=== PATIENT | male | born 1940 | race Caucasian/White ===

== ENCOUNTER 2019-04-07 15:18 | Outpatient (CLI) | payer MEDICARE, SELFPAY ==
--- NOTE | ~2019-04-07 | CT_ITS ---
EXAMINATION: CT brain wo con EXAM DATE: 04/07/2019 15:50 INDICATION: Repeated falls. TECHNIQUE: Spiral CT of the head was performed without contrast. Axial, coronal and sagittal images were reviewed. The dose-length product (DLP) for this examination was 681.00 mGy-cm. The exposure w as tailored according to patient size, and iterative reconstruction (ASIR) was used as additional dos e reduction technique. There is no prior study for comparison. FINDINGS: There is no acute intraparenchymal hemorrhage. No evidence of intraparenchymal brain mass lesion. No evidence of acute infarction. Please note that initial head CT has limited sensitivity f or small or acute infarctions. There is mild periventricular and subcortical hypodensity, nonspecific but probably related to small vessel ischemic disease. There is moderate prominence of the sulci a nd ventricles related to cerebral atrophy. There is intracranial carotid arteriosclerosis. There a re no extra-axial collections. There is no mass effect or midline shift. Patient has had bilateral ocular lens surgery. Soft tissue is unremarkable. The visualized sinuses and mastoid air cells are well aerated. IMPRESSION: 1. No acute intracranial findings. 2. Chronic age related findings. Reviewed, dictated and finalized at location A. [employer]
== END 2019-04-07 15:19 | disposition home or self-care (01) ==
PROVIDERS: PCP Family Medicine; Visit Provider Family Medicine
DX: R26.89 Other abnormalities of gait and mobility (principal); R29.6 Repeated falls
CPT/HCPCS: 70450

== ENCOUNTER 2019-10-11 12:25 | Inpatient (IN) | payer MEDICARE, SELFPAY ==
[2019-10-11] VITALS (13 sets, daily range): BP systolic 69–128; BP diastolic 38–53; PULSE 58–69; RESP 16–18; TEMP 36.3–37.2; O2SAT 99–100; BMI 26.8
--- NOTE | ~2019-10-11 | US_ITS ---
EXAMINATION: US venous doppler [facility] DATE: 10/12/2019 10:16 INDICATION: Lower limb edema. TECHNIQUE: Grayscale ultrasound images without and with compression and Doppler ultrasound images of the bilateral lower extremity veins were obtained. COMPARISON: Ultrasound 09/30/2015 FINDINGS: The visualized portions of right common femoral vein, profunda (deep) femoral vein, femoral vein, pop liteal vein, peroneal veins, posterior tibial veins, lesser saphenous vein, and greater saphenous vei n outflow are patent. The visualized portions of left common femoral vein, profunda femoral vein, femoral vein, popliteal v ein, peroneal veins, posterior tibial veins, lesser saphenous vein, and greater saphenous vein outflo w are patent. IMPRESSION: 1. No deep venous thrombosis. Reviewed, dictated and finalized at location B.
--- NOTE | ~2019-10-11 | CT_ITS ---
EXAMINATION: CT abdomen pelvis wo con DATE: 10/11/2019 13:29 INDICATION: Abdominal pain. TECHNIQUE: Computed tomography (CT) of the abdomen and pelvis was performed without intravenous contr ast. Automated exposure control and iterative reconstruction technique were employed. The dose-length product was 602.60 mGy-cm. COMPARISON: 06/30/2018 FINDINGS: Atelectasis the left lung base with mild elevation of the left hemidiaphragm. Unchanged atelectasis/s carring at the posterior medial right lower lobe along side several prominent thoracic endplate osteo phytes. Heart size is normal. Median sternotomy and aortic valve repair. There is also dense atherosc lerotic calcific lesion versus stenting along the right coronary artery. No pericardial or pleural ef fusion. A few calcified gallstones at the neck of the normal-appearing gallbladder. No evident wall thickenin g or pericholecystic inflammatory change to suggest acute cholecystitis. Liver, pancreas and bilatera l adrenal glands are normal. A few small calcifications in the spleen consistent with old granulomato us disease. Mild bilateral renal atrophy. No urolithiasis or hydronephrosis. There is extensive colon ic diverticulosis with a sigmoid predominance. There is no adjacent inflammatory change to suggest d iverticulitis no bowel obstruction. Appendix is normal. There is an irregular intraluminal filling de fect at the right posterior aspect of the bladder. This could be related to clot or neoplasm either a rising from the bladder wall or from the adjacent enlarged prostate. Small fat-containing left inguin al hernia. No free intraperitoneal gas or fluid. Unchanged haziness to the fat of the small bowel mes entery with a few prominent but still normal-sized mesenteric lymph nodes. There is also a round 8 mm lymph node in the fat along the right anterior margin of the bladder which is within normal limits i n size although atypical at this location but which has not changed since the prior study. No patholo gically enlarged abdominal or pelvic lymphadenopathy. There is calcified atherosclerosis of the aorta and many of the other arteries. Lumbar dextroscoliosis with moderate spondylosis. 5 mm anterolisthes is L4 on L5 with associated severe bilateral facet osteoarthritis. IMPRESSION: 1. Irregular filling defect in the bladder which could represent clot or malignancy either arising fr om the bladder wall or from the enlarged prostate. Correlate with urinalysis and consider further kwabena luation with either ultrasound or cystoscopy. 2. Cholelithiasis. 3. Diverticulosis. Reviewed, dictated and finalized at location A. IMPRESSION: 1. Irregular filling defect in the bladder which could represent clot or malign jluis either arising from the bladder wall or from the enlarged prostate. Correl ate with urinalysis and consider further evaluation with either ultrasound or c ystoscopy. 2. Cholelithiasis. 3. Diverticulosis.
[2019-10-11 13:01] LABS: Basophils Percent Auto 0.2 % (0.2-1.2); Eosinophils Absolute Auto 0.4 K/mm3 (0-0.3); Eosinophils Percent Auto 3.8 % (0-4.4); Hematocrit 43.7 % (42.0-52.0); Hemoglobin 14.5 g/dL (14.0-18.0); Immature Granulocyte Absolute 0.05 K/mm3 (0.00-0.031); Immature Granulocyte Percent A 0.5 % (0-0.5); Lymphocytes Absolute Auto 1.97 K/mm3 (0.9-3.2); Lymphocytes Percent Auto 18.6 % (18.3-44.2); Mean Corpuscular HGB Conc 33.2 g/dl (32-36); Mean Corpuscular Hemoglobin 31.9 pg (26-34); Mean Platelet Volume 11.9 fl (7.4-10.4); Monocytes Absolute Auto 1.1 K/mm3 (0.1-0.6); Monocytes Percent Auto 10.2 % (2.6-8.5); Neutrophils Absolute Auto 7.1 K/mm3 (1.3-6.7); Neutrophils Percent Auto 66.7 % (45.5-73.1); Platelet Count Result 114 k/mm3 (150-375); Red Blood Count 4.55 M/mm3 (4.6-6.20); Red Cell Distribution Width 13.8 % (11.5-14.5); White Blood Count 10.6 K/mm3 (4.5-10.0)
[2019-10-11 13:11] LABS: Alanine Aminotransferase 22 U/L (4-50); Albumin Level 3.2 g/dL (3.5-5.1); Alkaline Phosphatase 66 U/L (38-126); Anion Gap 7 mmol/L (8-16); Aspartate Amino Transferase 28 U/L (17-59); Bilirubin,Total 0.9 mg/dL (0.2-1.3); Blood Urea Nitrogen 60 mg/dL (9-20); Calcium 9.2 mg/dL (8.4-10.2); Carbon Dioxide 21 mmol/L (22-30); Chloride 109 mmol/L (98-107); Estimated CRCL calculation 27 ml/min; Estimated Glomerular Filt Rate 30; Glucose 154 mg/dL (75-110); Lipase 150 U/L (23-300); Potassium 4.8 mmol/L (3.4-5.0); Sodium 137 mmol/L (137-145)
--- NOTE | 2019-10-11 13:12 | ED.GENADULT ---
HPI - General Adult General Chief complaint: Nausea/Vomiting/Diarrhea Stated complaint: n/v/d Time Seen by Provider: 10/11/19 12:50 History of Present Illness HPI narrative: Patient is a 79 y/o male complaining of vomiting, diarrhea intermittently for last 6 days. There is no alleviating or exacerbating factor. He states that he also has some dark stool in diarrhea and abdominal pain. He has 1-2 episodes of diarrhea per day. Related Data Home Medications Medication Instructions Recorded Confirmed aspirin 81 mg tablet,delayed 81 mg PO DAILY 03/24/19 10/11/19 release atorvastatin 80 mg tablet 40 mg PO BID 03/24/19 10/11/19 ferrous sulfate 325 mg (65 mg 325 mg PO BID 03/24/19 10/11/19 iron) tablet furosemide 20 mg tablet 40 mg PO BID 03/24/19 10/11/19 latanoprost 0.005 % eye drops 1 drop EACH EYE DAILY 03/24/19 10/11/19 nitroglycerin 0.4 mg sublingual 0.4 mg SUBLINGUAL Q5M PRN 03/24/19 10/11/19 tablet tamsulosin 0.4 mg capsule 0.4 mg PO DAILY 03/24/19 10/11/19 timolol 0.5 % eye drops 1 drop EACH EYE Q12H 04/13/19 10/11/19 lisinopril 5 mg PO DAILY 10/11/19 10/11/19 warfarin 3 mg PO DAILY 10/11/19 10/11/19 Allergies Allergy/AdvReac Type Severity Reaction Status Date / Time ciprofloxacin Allergy Unknown loss of Verified 10/11/19 15:47 appetite prednisone Allergy Unknown Palpitation Verified 10/11/19 15:47 s sulfamethizole Allergy Unknown loss of Verified 10/11/19 15:47 appetite trimethoprim Allergy Unknown loss of Verified 10/11/19 15:47 appetite Review of Systems Constitutional: Constitutional: Reports as per HPI Eyes: Eyes: Denies blurry vision ENT: Denies headache(s) and Denies neck pain Cardiovascular: Cardiovascular: Denies chest pain and Denies dyspnea Respiratory: Respiratory: Denies cough and Denies dyspnea Gastrointestinal: Gastrointestinal: Reports abdominal pain, Reports diarrhea, Reports nausea and Reports vomiting Genitourinary: Genitourinary: Denies hematuria and Denies dysuria Musculoskeletal: Musculoskeletal: Denies back pain and Denies neck pain Neurologic: Denies headache(s) and Denies weakness [facility] Surgical History Surgical History (Updated 03/25/19 @ 10:31 by Pavel Black MD) History of CEA (carotid endarterectomy) right History of total knee arthroplasty S/P AVR (aortic valve replacement) S/P CABG (coronary artery bypass graft) S/P coronary artery stent placement S/P TURP Social History Social History (Updated 08/17/19 @ 11:01 by Bethanie Arevalo) Smoking packs per day: 1 Smoking cigarettes per day: 20.0 Years smoked: 36 Smoking pack-years: 36.00 Smoking status: Former smoker Tobacco type: cigarettes Second hand tobacco smoke exposure: No Smoking end date: 03/04/91 Alcohol intake: never Substance use: never Substance use type: does not use Gender identity (if verbalized by the patient): Male Spiritual care concerns: No Exam Const: General: no acute distress and well developed Orientation/consciousness: oriented to person, oriented to place, oriented to time and patient oriented x3 HENMT: Head: normocephalic Ears: external ears normal General nose exam: Normal external nose present Eyes: General: appearance normal, both eyes and all related structures Conjunctivae: conjunctivae normal Neck: Neck: normal visual inspection and full ROM Chest: Chest palpation & inspection: normal inspection of the chest and no tenderness Resp: Effort & Inspection: normal respiratory effort Auscultation: clear to auscultation bilaterally Cardio: Rate: regular rate Rhythm: regular rhythm GI: GI Palp: No abdominal tenderness and Yes Soft to palpation Skin: General skin exam: normal color and turgor normal Neuro: General: oriented to person, oriented to place, oriented to time and patient oriented x3 Cognition (Neuro): normal cognition Extrem: General: normal to inspection, full ROM and no pedal edema Psych: Appearanc
[2019-10-11] MEDS: SODIUM CHLORIDE 0.9% IV 1,000 ML 999 ML IV CONT ×2 (13:19→14:09)
[2019-10-11 14:36] LABS: Add Urine Microscopic? YES; Appearance Urine Clear (Clear); Bilirubin Urine Negative (Negative); Blood Urine Negative (Negative); Color Urine Yellow (Yellow); Glucose Urine UA Negative (Negative); Hyaline Casts Urine 20-29 /lpf; Ketones Urine Negative (Negative); Leukocyte Esterase Ur Negative LEU/UL (Negative); Mucus Urine Rare /lpf; Nitrate Urine Negative (Negative); Protein Urine 1+ mg/dL (Negative); RBC Urine 0-2 /hpf (0-2); Specific Grav Ur 1.017 (1.001-1.035); Squamous Epithelial Cell Urine Occasional /hpf (Few); Urobilinogen Urine Negative mg/dL (<2.0); WBC Urine 0-3 /hpf
--- NOTE | 2019-10-11 16:45 | PM.IMHP ---
H&P: HPI History of Present Illness Date/Time: 10/11/19 16:45 Chief complaint: Dark stools. Narrative: Pablo Mixon is an 79-year-old male with history of coronary artery disease status post CABG, aortic stenosis status post porcine aortic valve replacement, hypertension, type 2 diabetes mellitis, paroxysmal atrial fibrillation on long-term anticoagulation, and history of DVT on warfarin who presented to the emergency department earlier today from home for evaluation of dark stools. He has not felt well off and on since last Saturday with vague symptoms to include intermittent loose stools and a couple of episodes of vomiting. There have been days this week that he felt ok, but he does report increasing fatigue. He came to the hospital today as he has passed several dark, loose stools in the last couple of days. In the emergency department, he was quite orthostatic (95/46 --> 78/42 --> 69/38) but tells me that he was not feeling lightheaded or dizzy with those low readings. Additionally, he was noted to be in acute renal failure and with further questioning he mentions a change in his furosemide dose recently due to increasing lower extremity edema. Previously he had been on 20 mg twice daily, increased to three times daily, and more recently he was started on 20 mg three times day alternating with 20 mg four times a day. The swelling may have gone down a bit. He has not noticed a change in urine output or change in the color of his urine. It does not sound as though he has been eating or drinking as much this week as normal either although he denies epigastric discomfort, indigestion, abdominal pain, nausea (despite reporting an episode or 2 of vomiting this week), belching, and bloating. he has been on iron for quite some time, and has never noticed dark stools like this before. He has not taken Pepto-Bismol. He has no history of GERD. He denies significant caffeine and alcohol use. He has not had any change in stressors. He denies dysphagia, but apparently had a history of such several years ago. He also denies chest pain, pleuritic pain, shortness of breath, orthopnea, and PND. Review of Systems Review of Systems: Narrative: Twelve systems were reviewed with pertinent positives and negatives as per HPI. No headache. He denies lightheadedness and dizziness. No falls. No recent cold or flu symptoms. He denies recent travel and sick contacts. No dysuria, hematuria, urgency, or urinary hesitancy. The symptoms got better after a TURP couple of years ago. He recently saw Dr. Hollis and had what sounds like a bladder ultrasound, which may explain the finding on today's CT. Patient is do not have any information with regards to why that was done or what was found, however. His weight has remained stable. Despite reports of fatigue this past week, he admits that he has just not felt the same since his bypass and aortic valve replacement in 2018. Except as documented, all other systems were reviewed and are negative. [facility] Past Medical History Medical History (Updated 10/11/19 @ 19:26 by Daisy Ralph PA-C) Aortic stenosis Status post porcine valve replacement in 2018. Benign prostatic hyperplasia Carotid artery disease Status post right carotid endarterectomy in 2005. Coronary artery disease With history of stents and bypass. 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 He refused further testing, but there is documentation that he most likely has sleep apnea. Osteoarthritis Paroxysmal atrial fibrillation Stage 3 chronic kidney disease Baseline creatinine runs between 1.4 and 1.5. Type 2 diabetes mellitus Vitamin D deficiency Surgical History Surgical History (Updated 10/11/19 @ 19:09 by Daisy Santos
--- NOTE | 2019-10-11 17:19 | ADMGEN ---
This patient, Pablo Mixon, was admitted to 3 [facility] Room 324-01. Patient/family oriented to hospital policies and general routines including ID bracelet, bed and alarms, visiting hours, pain management, procedures, bathroom and other care routines, personal items, smoking policy, room service/diet, and visiting hours. Valuables list has been completed. Information on how to activate the Rapid Response Team has been discussed. Patient/Family are encouraged to report perceived risks to care and to ask questions if they do not understand what they are told or what they should do.
[2019-10-11 17:46] LABS: Hematocrit 40.2 % (42.0-52.0); Hemoglobin 13.2 g/dL (14.0-18.0)
[2019-10-11 17:56] LABS: Creatine Kinase 78 U/L (55-170)
[2019-10-11 17:58] LABS: INR 3.8
[2019-10-11 17:59] LABS: Partial Thromboplastin Time 53.7 SECONDS (22.3-36.8)
[2019-10-11] MEDS: SODIUM CHLORIDE 0.9% IV 1,000 ML 125 ML IV CONT (18:03)
[2019-10-11] MEDS: ATORVASTATIN 40 MG TABLET PO (20:42)
[2019-10-11] MEDS: SODIUM CHLORIDE 0.9% IV 1,000 ML 90 ML IV CONT (20:42)
[2019-10-11] MEDS: FERROUS SULFATE 324 MG TABLET PO (20:42)
[2019-10-11] MEDS: TIMOLOL MALEATE 0.5% OP SOLN 5 ML BOTTLE 1 DROP EACH EYE (20:42)
[2019-10-11 22:11] LABS: Glucose Point of Care 119 (65-105)
[2019-10-12] VITALS (8 sets, daily range): BP systolic 116–145; BP diastolic 39–63; PULSE 53–62; RESP 16–20; TEMP 36.6–36.9; O2SAT 96–99
[2019-10-12 01:02] LABS: Hematocrit 34.7 % (42.0-52.0); Hemoglobin 11.4 g/dL (14.0-18.0)
[2019-10-12 06:45] LABS: Hematocrit 34.5 % (42.0-52.0); Hemoglobin 11.3 g/dL (14.0-18.0); Mean Corpuscular HGB Conc 32.8 g/dl (32-36); Mean Corpuscular Hemoglobin 31.7 pg (26-34); Mean Corpuscular Volume 96.6 fl (80-100); Mean Platelet Volume 11.9 fl (7.4-10.4); Platelet Count Result 96 k/mm3 (150-375); Red Blood Count 3.57 M/mm3 (4.6-6.20); Red Cell Distribution Width 13.8 % (11.5-14.5); White Blood Count 8.5 K/mm3 (4.5-10.0)
[2019-10-12 06:56] LABS: INR 4.5; Prothrombin Time 41.8 Seconds (11.1-14.7)
[2019-10-12 06:57] LABS: Anion Gap 3 mmol/L (8-16); Blood Urea Nitrogen 52 mg/dL (9-20); Calcium 8.5 mg/dL (8.4-10.2); Carbon Dioxide 21 mmol/L (22-30); Chloride 115 mmol/L (98-107); Estimated CRCL calculation 35 ml/min; Estimated Glomerular Filt Rate 42; Glucose 96 mg/dL (75-110); Phosphorus 3.3 mg/dL (2.5-4.5); Potassium 4.1 mmol/L (3.4-5.0); Sodium 139 mmol/L (137-145)
[2019-10-12] MEDS: FERROUS SULFATE 324 MG TABLET PO ×2 (10:47→18:53)
[2019-10-12] MEDS: TAMSULOSIN HCL 0.4 MG CAPSULE PO (10:47)
[2019-10-12] MEDS: ATORVASTATIN 40 MG TABLET PO ×2 (10:48→20:50)
[2019-10-12] MEDS: LATANOPROST 0.005% OP SOLN 2.5 ML BTL 1 DROP EACH EYE (10:48)
[2019-10-12] MEDS: TIMOLOL MALEATE 0.5% OP SOLN 5 ML BOTTLE 1 DROP EACH EYE ×2 (10:49→20:51)
--- NOTE | 2019-10-12 11:02 | WPDGICN ---
Assessment and Plan Assessment and plan (1) Dark stools: Code(s): R19.5 - Other fecal abnormalities Status: Acute Assessment and Plan: Dark stools are of uncertain significance. Given his history of anticoagulation stool Hemoccult will be obtained. Patient's hemoglobin is stable. If stool Hemoccult is positive elective colonoscopy can be arranged. (2) Current use of [facility] anticoagulation: Code(s): Z79.01 - shelter (current) use of anticoagulants Status: Acute (3) Stage 3 chronic kidney disease: Code(s): N18.3 - Chronic kidney disease, stage 3 (moderate) Status: Acute (4) Type 2 diabetes mellitus: Code(s): E11.9 - Type 2 diabetes mellitus without complications Status: Acute (5) History of total knee arthroplasty: Code(s): Z96.659 - Presence of unspecified artificial knee joint Status: Acute (6) S/P AVR (aortic valve replacement): Code(s): Z95.2 - Presence of prosthetic heart valve Status: Acute (7) S/P CABG (coronary artery bypass graft): Code(s): Z95.1 - Presence of aortocoronary bypass graft Status: Acute (8) Cholelithiasis: Code(s): K80.20 - Calculus of gallbladder without cholecystitis without obstruction Status: Acute Assessment and Plan: Gallstones noted on CT scan likely asymptomatic. (9) Family history of colon cancer in father: Code(s): Z80.0 - Family history of malignant neoplasm of digestive organs Status: Acute Assessment and Plan: Because of family history of colon cancer elective screening colonoscopy at 5 year intervals can be considered as an outpatient. GI Consult Note Consult date/time: 10/12/19 11:02 HPI: Pablo Mixon is a 79 year old male Seen in evaluation at the request of the hospitalist service. Patient presented the emergency room complaining of dark stools and was admitted to the hospital. No overt bleeding has been identified. Patient denies having had GI bleeding in the past. His past medical history is significant for atherosclerotic heart disease. He has a history of coronary artery bypass grafting atrial fibrillation. He is on chronic warfarin anticoagulation. Patient has been treated for hypertension. He has a history of a DVT. He has been treated for diabetes mellitus. Previous surgery includes poor seen aortic valve replacement. He has a history of a right knee arthroplasty. Heart stent. As well as a CABG. Family history is significant his father had colon cancer. Review of Systems Review of Systems: All systems reviewed & are unremarkable except as noted in HPI and below [facility] Past Medical History Medical History (Updated 10/12/19 @ 11:07 by Marek Vernon MD) Aortic stenosis Status post porcine valve replacement in 2017. Benign prostatic hyperplasia Carotid artery disease Status post right carotid endarterectomy in 2005. Coronary artery disease With history of stents and bypass. 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 He refused further testing, but there is documentation that he most likely has sleep apnea. Osteoarthritis Paroxysmal atrial fibrillation Stage 3 chronic kidney disease Baseline creatinine runs between 1.4 and 1.5. Type 2 diabetes mellitus Vitamin D deficiency Surgical History Surgical History History of aortic valve replacement with porcine valve (~12/2017) History of arthroplasty of right knee (08/31/15) History of coronary artery stent placement (~2007) x4. History of four vessel coronary artery bypass graft (~12/2017) History of right-sided carotid endarterectomy (~2005) History of tonsillectomy and adenoid
[2019-10-12 12:19] LABS: Glucose Point of Care 150 (65-105)
[2019-10-12 12:56] LABS: Hematocrit 37.6 % (42.0-52.0); Hemoglobin 12.3 g/dL (14.0-18.0)
--- NOTE | 2019-10-12 15:54 | PM.IMPN ---
Progress Note: A&P Assessment and Plan (1) Dark stools: Code(s): R19.5 - Other fecal abnormalities Status: Acute Assessment and Plan: ----- Concerning for GI bleed since he is on oral anticoagulation. Will await stool sample to check for occult blood since he is on iron. Does not seem infectious at this time since it is dark blood and is not having very much abdominal pain with this. Dr. Vernon has seen the patient and I appreciate his additional recommendations. I will start him on Protonix. (2) Acute on chronic kidney failure: Code(s): N17.9 - Acute kidney failure, unspecified; N18.9 - Chronic kidney disease, unspecified Status: Acute Assessment and Plan: ----- Creatinine improved from 2.1 on admission to 1.6. Likely secondary to over-diuresis. Will stop fluids at this time since his blood pressure is better 123/61 and still has a little lower extremity swelling. Monitor kidney function, I suspect this will be improved tomorrow. (3) Orthostatic hypotension: Code(s): I95.1 - Orthostatic hypotension Status: Acute Assessment and Plan: -----Secondary to over diuresis ; blood pressures have responded to IV fluids. 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 Continue to hold warfarin. since his hemoglobin is stable, no need to reverse warfarin at this time. (5) Type 2 diabetes mellitus: Code(s): E11.9 - Type 2 diabetes mellitus without complications Status: Acute Assessment and Plan: -----last glucose 150. Continue SSI. (6) Essential hypertension: Code(s): I10 - Essential (primary) hypertension Status: Acute Assessment and Plan: -----Holding lasix and lisinopril (7) Abnormal computed tomography of abdomen and pelvis: Code(s): R93.5 - Abnormal findings on diagnostic imaging of other abdominal regions, including retroperitoneum Status: Acute Assessment and Plan: Irregular filling defect noted in the bladder, possible clot (no blood in urine) or malignancy. 2 months ago looks like he saw urology. At that time they found that he had a hypotonic bladder. Looks like he had a TURP in the past. Follow up with urology outpt. (8) Lower extremity edema: Code(s): R60.0 - Localized edema Status: Acute Assessment and Plan: -----Likely diastolic CHF. Pt staes his LE swelling is 'good' today and usually it is worse. He wears compression hose a lot. Will order those for now and continue to hold lasix. No DVT on u/s. Last echo 03/30/19 shows EF 55% with abnormal diastolic function. Time Spent With Patient Time with patient: 25 - 35 minutes Subjective Date/time seen: 10/12/19 15:54 Interval history: Pt is a 79-year-old male on long-term anticoagulation here for dark stools. He said these dark stools started last Saturday and did get better on Saturday but then he started having dark stools again throughout the weekend. He does not have any chest pain, shortness of breath, fevers, chills, abdominal pain, nausea, vomiting, lightheadedness or dizziness. He does state these are more liquid in nature. He also mentions that his lower extremities have been swelling and that is pretty chronic for him. He uses compression socks at home. he took a look at his legs and said I call this a good day . Review of Systems Review of Systems: All systems reviewed & are unremarkable except as noted in HPI and below Exam Narrative: Exam Narrative: General: Well developed well nourished patient resting in bed in NAD HEENT: normocephalic Neck: supple Neuro: Alert and oriented x4 CV: irregularly irregular. Telemetry reviewed which showed occasional PVCs. Resp:CTA Abd: Soft, non distended. No
--- NOTE | 2019-10-12 17:00 | PC.NURSE ---
val barbour RN witnessed pt stating he wanted to be a DNR. Cielo stated she was okay with pt being DNR and to put the order in.
[2019-10-12 18:03] LABS: Hematocrit 36.6 % (42.0-52.0); Hemoglobin 12.2 g/dL (14.0-18.0)
[2019-10-12 18:56] LABS: Glucose Point of Care 147 (65-105)
[2019-10-12] MEDS: PANTOPRAZOLE 40 MG TABLET PO (20:50)
[2019-10-12 23:24] LABS: Glucose Point of Care 143 (65-105)
[2019-10-13] VITALS: BP 123/55; BP 124/58; BP 126/53; PULSE 59; PULSE 61; PULSE 66; RESP 16; TEMP 36.8; O2SAT 95; O2SAT 96
[2019-10-13 06:00] VITALS: BP 123/53; PULSE 56; RESP 16; TEMP 36.5; O2SAT 95
[2019-10-13 06:34] LABS: Hematocrit 34.3 % (42.0-52.0); Hemoglobin 11.2 g/dL (14.0-18.0); Mean Corpuscular HGB Conc 32.7 g/dl (32-36); Mean Corpuscular Hemoglobin 31.3 pg (26-34); Mean Corpuscular Volume 95.8 fl (80-100); Mean Platelet Volume 11.5 fl (7.4-10.4); Platelet Count Result 103 k/mm3 (150-375); Red Blood Count 3.58 M/mm3 (4.6-6.20); Red Cell Distribution Width 13.7 % (11.5-14.5); White Blood Count 8.3 K/mm3 (4.5-10.0)
[2019-10-13 07:15] LABS: Alanine Aminotransferase 18 U/L (4-50); Albumin Level 2.5 g/dL (3.5-5.1); Alkaline Phosphatase 48 U/L (38-126); Anion Gap 3 mmol/L (8-16); Aspartate Amino Transferase 25 U/L (17-59); Bilirubin,Total 0.5 mg/dL (0.2-1.3); Blood Urea Nitrogen 36 mg/dL (9-20); Calcium 8.9 mg/dL (8.4-10.2); Carbon Dioxide 21 mmol/L (22-30); Chloride 117 mmol/L (98-107); Estimated CRCL calculation 43 ml/min; Estimated Glomerular Filt Rate 53; Glucose 97 mg/dL (75-110); Sodium 141 mmol/L (137-145)
[2019-10-13 08:00] VITALS: BP 122/46; BP 130/47; BP 147/49; PULSE 50; PULSE 54; PULSE 87; O2SAT 97; O2SAT 98
[2019-10-13 08:53] LABS: INR 2.6; Prothrombin Time 27.2 Seconds (11.1-14.7)
[2019-10-13 08:53] LABS: IFOB Positive Control Positive; Immunochemical Fecal Occult Bl Positive (N)
[2019-10-13 10:00] LABS: Glucose Point of Care 97 (65-105)
[2019-10-13] MEDS: LATANOPROST 0.005% OP SOLN 2.5 ML BTL 1 DROP EACH EYE (10:03)
[2019-10-13] MEDS: TIMOLOL MALEATE 0.5% OP SOLN 5 ML BOTTLE 1 DROP EACH EYE (10:03)
[2019-10-13] MEDS: TAMSULOSIN HCL 0.4 MG CAPSULE PO (10:03)
[2019-10-13] MEDS: FERROUS SULFATE 324 MG TABLET PO ×2 (10:04→17:40)
[2019-10-13] MEDS: PANTOPRAZOLE 40 MG TABLET PO ×2 (10:04→21:22)
[2019-10-13] MEDS: ATORVASTATIN 40 MG TABLET PO ×2 (10:04→21:22)
--- NOTE | 2019-10-13 12:00 | WPDGIPROGNO ---
Progress Note: A&P Additional Plan Patient alert and comfortable this morning. He reports only 1 bowel movement yesterday. Apparently was very small. He denies abdominal pain. No obvious bleeding. Physical exam reveals patient be alert. Vital signs are stable. Lungs are clear. Heart without murmur. Abdomen bowel sounds present soft nontender with no hepatosplenomegaly. Stool Hemoccult positive. Hemoglobin 11.2 stable. Impression 1. Occult blood in stool. Patient has had dark stools. Plan to evaluate with colonoscopy an EGD tomorrow. 2. Atrial fibrillation with chronic anticoagulation. Plan is for GI endoscopy to ensure safety of continued anticoagulation. Patient will be prepped today with endoscopy tomorrow. Subjective Date/time seen: 10/13/19 12:00 Objective Data Vital Signs Vital Signs: Vital Signs - 24 hr 10/12/19 14:00 10/12/19 16:00 10/12/19 20:00 Temperature 98.4 F 98.4 F Pulse Rate 55 L 53 L 56 L Respiratory Rate 16 20 Blood Pressure 123/61 145/63 H Pulse Oximetry 96 99 10/13/19 00:00 10/13/19 06:00 10/13/19 08:00 Temperature 98.2 F 97.7 F Pulse Rate 66 56 L 50 L Respiratory Rate 16 16 Blood Pressure 123/55 L 123/53 L 122/46 L Pulse Oximetry 96 95 98 Intake/Output Intake/Output: Intake & Output 10/10/19 10/11/19 10/12/19 10/13/19 23:59 23:59 23:59 23:59 Intake Total 2615 2410 420 Output Total 1250 1150 Balance 2615 1160 -730 Meds/Results Medications: Active Medications Generic Name Dose Route Start Last Admin Trade Name Freq PRN Reason Stop Dose Admin Atorvastatin Calcium 40 mg 10/11/19 21:00 10/13/19 10:04 Lipitor PO 40 mg Q12HR FINESSE Administration Dextrose 12.5 gm 10/11/19 19:33 Dextrose 50% Syringe IV PUSH PRN PRN Hypoglycemia Protocol Ferrous Sulfate 324 mg 10/11/19 17:00 10/13/19 10:04 Ferrous Sulfate PO 324 mg BIDWM FINESSE Administration Glucagon 1 mg 10/11/19 19:33 Glucagon For Inj IM PRN PRN Hypoglycemia Protocol Glucose 15 gm 10/11/19 19:33 Glutose 15 PO PRN PRN Hypoglycemia Protocol Dextrose 1,000 mls @ 100 mls/hr 10/11/19 19:33 Dextrose 5% 1,000 Ml IVPB PRN PRN Hypoglycemia Protocol Insulin Aspart 2 - 5 units 10/12/19 08:00 10/13/19 10:02 Novolog SUB-Q Not Given TIDWM FINESSE Protocol Latanoprost 1 drop 10/12/19 09:00 10/13/19 10:03 Xalatan EACH EYE 1 drop DAILY FINESSE Administration Pantoprazole Sodium 40 mg 10/12/19 21:00 10/13/19 10:04 Protonix PO 40 mg Q12HR FINESSE Administration Tamsulosin HCl 0.4 mg 10/12/19 09:00 10/13/19 10:03 Flomax PO 0.4 mg DAILY FINESSE Administration Timolol Maleate 1 drop 10/11/19 21:00 10/13/19 10:03 Timoptic 0.5% Ophth Soln EACH EYE 1 drop Q12HR FINESSE Administration Radiology Results: ITS Impressions Abdomen/Pelvis CT 10/11/19 13:30 IMPRESSION: 1. Irregular filling defect in the bladder which could represent clot or malignancy either arising from the bladder wall or from the enlarged prostate. Correlate with urinalysis and consider further evaluation with either ultrasound or cystoscopy. 2. Cholelithiasis. 3. Diverticulosis. Venous Doppler Study 10/12/19 10:17 IMPRESSION: 1. No deep venous thrombosis. Labs Labs: Laboratory Results - last 24 hr 10/12/19 10/12/19 10/12/19 12:14 12:43 17:44 WBC RBC Hgb 12.3 L 12.2 L Hct 37.6 L 36.6 L MCV MCH MCHC RDW Plt Count MPV PT INR Sodium Potassium Chloride Carbon Dioxide Anion Gap BUN Creatinine Estim Creat Clear Calc Estimated GFR Glucose POC Capillary Glucose 150 H Calcium Magnesium Total Bilirubin Direct Bilirubin AST ALT Alkaline Phosphatase Total Protein Albumin Stl Occult Blood (IFOB) 10/12/19 10/12/19 10/13/19 18:50 20:54 06:00 WBC 8.3 RBC
--- NOTE | 2019-10-13 12:08 | PM.IMPN ---
Progress Note: A&P Assessment and Plan (1) Dark stools: Code(s): R19.5 - Other fecal abnormalities Status: Acute Assessment and Plan: ----- Concerning for GI bleed since he is on oral anticoagulation. Ifob negative, plan for colonoscopy and possibly EGD tomorrow by Dr. Vernon. Continue Protonix (2) Acute on chronic kidney failure: Code(s): N17.9 - Acute kidney failure, unspecified; N18.9 - Chronic kidney disease, unspecified Status: Acute Assessment and Plan: ----- Creatinine improved from 2.1 on admission to 1.3. Likely secondary to over-diuresis. Monitor kidney function. (3) Orthostatic hypotension: Code(s): I95.1 - Orthostatic hypotension Status: Acute Assessment and Plan: -----Secondary to over diuresis ; blood pressures have responded to IV fluids. 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 Continue to hold warfarin. since his hemoglobin is stable, no need to reverse warfarin at this time. (5) Type 2 diabetes mellitus: Code(s): E11.9 - Type 2 diabetes mellitus without complications Status: Acute Assessment and Plan: -----last glucose 97. Continue SSI. (6) Essential hypertension: Code(s): I10 - Essential (primary) hypertension Status: Acute Assessment and Plan: -----Holding lasix and lisinopril. Last bp 122/46. (7) Abnormal computed tomography of abdomen and pelvis: Code(s): R93.5 - Abnormal findings on diagnostic imaging of other abdominal regions, including retroperitoneum Status: Acute Assessment and Plan: Irregular filling defect noted in the bladder, possible clot (no blood in urine) or malignancy. 2 months ago looks like he saw urology. At that time they found that he had a hypotonic bladder. Looks like he had a TURP in the past. Follow up with urology outpt. (8) Lower extremity edema: Code(s): R60.0 - Localized edema Status: Acute Assessment and Plan: -----Likely diastolic CHF. Pt staes his LE swelling is 'good' today and usually it is worse. He wears compression hose a lot. Will order those for now and continue to hold lasix. No DVT on u/s. Last echo 03/30/19 shows EF 55% with abnormal diastolic function. Subjective Date/time seen: 10/13/19 12:08 Interval history: Pt is a 79-year-old male on long-term anticoagulation here for dark stools On anticoagulation. Patient was seen today and continues to have dark stools. He has no nausea, vomiting, fevers, chills, lightheadedness, dizziness, chest pain, shortness of breath, or dyspnea on exertion with this. His last colonoscopy was greater than 15 years ago. Exam Narrative: Exam Narrative: General: Well developed well nourished patient resting in bed in NAD HEENT: normocephalic Neck: supple Neuro: Alert and oriented x4 CV: irregularly irregular. Resp:CTA Abd: Soft, non distended. No pain to palpation. Positive bowel sounds Extremities: Trace pitting edema to the LE. No erythema. Objective Data Vital Signs Vital Signs: Vital Signs - 24 hr 10/12/19 14:00 10/12/19 16:00 10/12/19 20:00 Temperature 98.4 F 98.4 F Pulse Rate 55 L 53 L 56 L Respiratory Rate 16 20 Blood Pressure 123/61 145/63 H Pulse Oximetry 96 99 10/13/19 00:00 10/13/19 06:00 10/13/19 08:00 Temperature 98.2 F 97.7 F Pulse Rate 66 56 L 50 L Respiratory Rate 16 16 Blood Pressure 123/55 L 123/53 L 122/46 L Pulse Oximetry 96 95 98 Intake/Output Intake/Output: Intake & Output 10/10/19 10/11/19 10/12/19 10/13/19 23:59 23:59 23:59 23:59 Intake Total 2615 2410 420 Output Total 1250 1150 Balance 2615 1160 -730 Meds/Results Medications: Active Medications Generic Name
[2019-10-13] MEDS: PEG (High)/E-LYTE SOLN 4,000 ML BTL 4000 ML PO (12:54)
[2019-10-13] MEDS: PHYTONADIONE 5 MG TABLET PO (13:46)
[2019-10-13 14:00] VITALS: BP 132/51; PULSE 74; RESP 16; TEMP 36.8; O2SAT 94
[2019-10-13 14:27] LABS: Glucose Point of Care 150 (65-105)
[2019-10-13 18:06] LABS: Glucose Point of Care 103 (65-105)
[2019-10-13] MEDS: TIMOLOL MALEATE 0.5% OP SOLN 5 ML BOTTLE 1 DROP LEFT EYE (21:23)
[2019-10-13 22:00] VITALS: BP 158/68; PULSE 63; RESP 20; TEMP 36.6; O2SAT 100
[2019-10-13 22:07] LABS: Glucose Point of Care 106 (65-105)
[2019-10-14] VITALS (10 sets, daily range): BP systolic 95–174; BP diastolic 50–67; PULSE 48–63; RESP 15–18; TEMP 36.2–37.1; O2SAT 97–100
[2019-10-14 06:08] LABS: Hematocrit 37.7 % (42.0-52.0); Hemoglobin 12.5 g/dL (14.0-18.0)
[2019-10-14 06:16] LABS: INR 1.8
[2019-10-14 06:23] LABS: Anion Gap 3 mmol/L (8-16); Blood Urea Nitrogen 20 mg/dL (9-20); Calcium 8.9 mg/dL (8.4-10.2); Carbon Dioxide 22 mmol/L (22-30); Chloride 116 mmol/L (98-107); Estimated CRCL calculation 50 ml/min; Estimated Glomerular Filt Rate > 60; Glucose 88 mg/dL (75-110); Sodium 141 mmol/L (137-145)
--- NOTE | 2019-10-14 07:22 | PM.DS ---
DS: Admitting Diagnosis Admitting Diagnosis Admitting Diagnosis: Dark stools. DS: Discharge Diagnosis Discharge Diagnosis (1) Dark stools: Code(s): R19.5 - Other fecal abnormalities Status: Acute Assessment and Plan: -----patient underwent an EGD which showed localized erosions without any evidence of bleeding and a colonoscopy which showed sigmoid colon polyps, diverticulosis without perforation or abscess, and internal hemorrhoids. Continue Protonix and hold anticoagulation for a few additional days, see discharge instructions. He was educated about blood loss symptoms and to follow-up. 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 He is to follow-up with an INR check next week. and patient understand (5) Type 2 diabetes mellitus: Code(s): E11.9 - Type 2 diabetes mellitus without complications Status: Acute Assessment and Plan: -----last glucose 81 (6) Essential hypertension: Code(s): I10 - Essential (primary) hypertension Status: Acute Assessment and Plan: -----142/50 will continue home meds at discharge (7) Abnormal computed tomography of abdomen and pelvis: Code(s): R93.5 - Abnormal findings on diagnostic imaging of other abdominal regions, including retroperitoneum Status: Acute Assessment and Plan: Irregular filling defect noted in the bladder, possible clot (no blood in urine) or malignancy. 2 months ago looks like he saw urology. At that time they found that he had a hypotonic bladder. Looks like he had a TURP in the past. Follow up with urology outpt, I spoke to pt and about this (8) Lower extremity edema: Code(s): R60.0 - Localized edema Status: Acute Assessment and Plan: -----Likely diastolic CHF. Pt staes his LE swelling is 'good' today and usually it is worse. He wears compression hose a lot. No DVT on u/s. Last echo 03/30/19 shows EF 55% with abnormal diastolic function. DS: Summary Hospital Course Reason for hospitalization: diarrhea, dark stools Hospital Course: Patient is an 79-year-old male who presented emergency room for dark stools, intermittent diarrhea and increasing fatigue. Vitals in the ER were temperature 36.3? C, pulse 69, respiratory rate 18, blood pressure 91/41, pulse ox 99 on room air. Patient was found to be orthostatic. Hemoglobin was 14.5 on admission, INR supratherapeutic 3.8, had RACHEL with a creatinine at 2.1. Patient was admitted to the hospitalist service and started on IV fluids and continued to have dark stools. His Ifob was negative but since he was on anticoagulation, he underwent an EGD and a colonoscopy. Please see above for further details. He was discharged on his home medications but needs to follow up with his pcp, Dr. Black, for INR check and BMP. I will call his office and let him know as well. Time Spent with Patient Time attestation: Total time spent providing and/or coordinating discharge services: Exam Narrative: Exam Narrative: General: Well developed well nourished patient resting in bed in NAD HEENT: normocephalic Neck: supple Neuro: Alert and oriented x4 CV: irregularly irregular. Resp:CTA Abd: Soft, non distended. No pain to palpation. Positive bowel sounds Extremities: Trace pitting edema to the LE. No erythema. DS: Data Data Completed and Pe
[2019-10-14 08:31] LABS: Glucose Point of Care 75 (65-105)
--- NOTE | 2019-10-14 09:11 | PC.NURSE ---
To GI Lab per [ stretcher], IV [20 RFA SL ].
[2019-10-14] MEDS: GENTAMICIN 80MG/SOD CHL 50 ML 80 MG/50 ML BAG 100 MG IVPB (09:18)
[2019-10-14] MEDS: LACTATED RINGERS 1,000 ML 150 ML IV CONT (09:19)
[2019-10-14 09:24] LABS: Glucose Point of Care 84 (65-105)
--- NOTE | 2019-10-14 09:43 | WPDANESEPPF ---
Anes - Initial Pre Proc Eval Procedure: Operation Date: 10/14/19 10:30 Proposed Procedures p Esophagogastroduodenoscopy & Colonoscopy - Marek Vernon MD Date/Time: 10/14/19 09:43 Surgeon: Cielo Moe PA-C Pre Op Diagnosis: Dark stools. Patient Data Age: 79 Gender: M Height: 5 ft 11 in Weight: 88.9 kg Last Vital Signs Temp 97.6 F 10/14/19 09:32 Pulse 61 10/14/19 09:32 Resp 18 10/14/19 09:32 BP 174/51 H 10/14/19 09:32 Pulse Ox 100 10/14/19 09:32 Allergies Allergy/AdvReac Type Severity Reaction Status Date / Time ciprofloxacin Allergy Unknown loss of Verified 10/14/19 09:29 appetite prednisone Allergy Unknown Palpitation Verified 10/14/19 09:29 s sulfamethizole Allergy Unknown loss of Verified 10/14/19 09:29 appetite trimethoprim Allergy Unknown loss of Verified 10/14/19 09:29 appetite Home Medications Medication Instructions Recorded Confirmed Type metformin 500 mg tablet,extended 500 mg PO DAILY #90 tablet 01/22/19 10/11/19 Rx release 24 hr aspirin 81 mg tablet,delayed 81 mg PO DAILY 03/24/19 10/11/19 History release atorvastatin 80 mg tablet 40 mg PO BID 03/24/19 10/11/19 History ferrous sulfate 325 mg (65 mg 325 mg PO BID 03/24/19 10/11/19 History iron) tablet furosemide 20 mg tablet 40 mg PO BID 03/24/19 10/11/19 History latanoprost 0.005 % eye drops 1 drop EACH EYE DAILY 03/24/19 10/11/19 History nitroglycerin 0.4 mg sublingual 0.4 mg SUBLINGUAL Q5M PRN 03/24/19 10/11/19 History tablet tamsulosin 0.4 mg capsule 0.4 mg PO DAILY 03/24/19 10/11/19 History timolol 0.5 % eye drops 1 drop LEFTEYE Q12H 04/13/19 10/13/19 History lisinopril 5 mg PO DAILY 10/11/19 10/11/19 History warfarin 3 mg PO DAILY 10/11/19 10/11/19 History Laboratory Tests 10/13/19 10/13/1920 09:29 12:56 17:39 Hgb Hct PT INR Sodium Potassium Chloride Carbon Dioxide Anion Gap BUN Creatinine Estim Creat Clear Calc Estimated GFR Glucose POC Capillary Glucose 97 mg/dl mg/dl 150 mg/dl H mg/dl 103 mg/dl mg/dl (65-105) (65-105) (65-105) Calcium 10/13/19 10/14/19 10/14/19 21:27 05:44 05:44 Hgb 12.5 g/dL L g/dL (14.0-18.0) Hct 37.7 % L % (42.0-52.0) PT 20.0 Seconds H D Seconds (11.1-14.7) INR 1.8 Sodium Potassium Chloride Carbon Dioxide Anion Gap BUN Creatinine Estim Creat Clear Calc Estimated GFR Glucose POC Capillary Glucose 106 mg/dl mg/dl (65-105) Calcium 10/14/19 10/14/19 10/14/19 05:44 08:02 09:22 Hgb Hct PT INR Sodium 141 mmol/L mmol/L (137-145) Potassium 4.0 mmol/L mmol/L (3.4-5.0) Chloride 116 mmol/L H mmol/L (98-107) Carbon Dioxide 22 mmol/L mmol/L (22-30) Anion Gap 3 mmol/L L mmol/L (8-16) BUN 20 mg/dL D mg/dL (9-20) Creatinine 1.10 mg/dL mg/dL (0.7-1.3) Estim Creat Clear Calc 50 ml/min ml/min Estimated GFR > 60 (59 - ) Glucose 88 mg/dL mg/dL (75-110) POC Capillary Glucose 75 mg/dl mg/dl 84 mg/dl mg/dl (65-105) (65-105) Calcium 8.9 mg/dL mg/dL (8.4-10.2) Patient hx anesthesia problems: none Family hx anesthesia problems: none [facility] Past Medical History Medical History (Updated 10/12/19 @ 11:07 by Marek Vernon MD) Aortic stenosis Status post porcine valve replacement in 2018. Benign prostatic hyperplasia Carotid artery disease Status post right carotid endarterectomy in 2005. Coronary artery disease With history of stents and bypass. Current use of long
[2019-10-14] MEDS: AMPICILLIN 2 GM/NS 100 ML 2 GM/100 ML BAG IVPB (09:45)
[2019-10-14] MEDS: BENZOCAINE (*SP) 60 ML SPRAY CAN (HURRICAINE) 1 SPRAY MUCOUS MEM (10:17)
--- NOTE | 2019-10-14 11:36 | PC.NURSE ---
Patient returned from GI lab per kamari @ [id number].
[2019-10-14] MEDS: TAMSULOSIN HCL 0.4 MG CAPSULE PO (11:41)
[2019-10-14] MEDS: PANTOPRAZOLE 40 MG TABLET PO (11:42)
[2019-10-14] MEDS: TIMOLOL MALEATE 0.5% OP SOLN 5 ML BOTTLE 1 DROP LEFT EYE (11:42)
[2019-10-14] MEDS: FERROUS SULFATE 324 MG TABLET PO (11:42)
[2019-10-14] MEDS: LATANOPROST 0.005% OP SOLN 2.5 ML BTL 1 DROP EACH EYE (11:42)
[2019-10-14] MEDS: ATORVASTATIN 40 MG TABLET PO (11:43)
[2019-10-14 12:49] LABS: Glucose Point of Care 81 (65-105)
== END 2019-10-14 14:04 | disposition home or self-care (01) | DRG 392 ==
LOC: ANHED 14:16 → ANH3MEDSUR 16:27
PROVIDERS: Internal Medicine Gastroenterology; Physician Assistant; Admitting Provider Family Medicine; Emergency Provider Emergency Medicine; PCP Family Medicine; Visit Provider Family Medicine
PROC: 0DJ08ZZ Inspection of Upper Intestinal Tract, Via Natural or Artificial Opening Endoscopic (ICD-10-PCS; CPT 43235; principal; 2019-10-14 10:30)
DX: R19.5 Other fecal abnormalities; N17.9 Acute kidney failure, unspecified; I13.0 Hypertensive heart and chronic kidney disease with heart failure and stage 1 through stage 4 chronic kidney disease, or unspecified chronic kidney disease; I50.30 Unspecified diastolic (congestive) heart failure; K25.9 Gastric ulcer, unspecified as acute or chronic, without hemorrhage or perforation; K63.5 Polyp of colon; K57.30 Diverticulosis of large intestine without perforation or abscess without bleeding; K64.8 Other hemorrhoids; I95.1 Orthostatic hypotension; R93.5 Abnormal findings on diagnostic imaging of other abdominal regions, including retroperitoneum; E11.22 Type 2 diabetes mellitus with diabetic chronic kidney disease; N18.3 Chronic kidney disease, stage 3 (moderate); I25.10 Atherosclerotic heart disease of native coronary artery without angina pectoris; I48.0 Paroxysmal atrial fibrillation; Z96.651 Presence of right artificial knee joint; Z79.01 Long term (current) use of anticoagulants; Z86.718 Personal history of other venous thrombosis and embolism; Z87.891 Personal history of nicotine dependence; Z95.1 Presence of aortocoronary bypass graft; Z95.2 Presence of prosthetic heart valve; Z95.5 Presence of coronary angioplasty implant and graft; Z86.010 Personal history of colon polyps
CPT/HCPCS: 36415; 74176; 80048; 80053; 80076; 81001; 82274; 82550; 83690; 83735; 84100; 84443; 85014; 85018; 85025; 85027; 85610; 85730; 86850; 86900; 86901; 87081; 88305; 93970; 96360; 96361; 97161; 97165; 99285; A9270; G0378; J0290; J1580; J2704; J7030; J7120

== ENCOUNTER 2021-07-04 10:54 | Outpatient (CLI) | payer MEDICARE, SELFPAY ==
--- NOTE | ~2021-07-04 | XR_ITS ---
EXAMINATION: XR shoulder RT min 2V, XR clavicle RT DATE: 07/04/2021 11:16 INDICATION: Right shoulder pain TECHNIQUE: Line 1. AP internally and externally rotated, AP oblique externally rotated and transscapular Y views of t he right shoulder were obtained. 2. AP and cephalad angled AP views of the right clavicle were obtained. COMPARISON: None FINDINGS: Normal alignment. No fracture.Mild to moderate right glenohumeral and acromioclavicular osteoarthrit is. Moderate-sized anterior subacromial spur. Bone island at the posterior inferior glenoid. Soft tis sues are unremarkable. Lung volumes appear small but is clear. Median sternotomy wires are present. IMPRESSION: Mild to moderate right acromioclavicular and glenohumeral joints. Reviewed, dictated and finalized at location A. IMPRESSION: Mild to moderate right acromioclavicular and glenohumeral joints.
== END 2021-07-04 10:55 | disposition home or self-care (01) ==
PROVIDERS: PCP Family Medicine; Visit Provider Family Medicine
DX: M25.511 Pain in right shoulder (principal); M19.011 Primary osteoarthritis, right shoulder
CPT/HCPCS: 73000; 73030

== ENCOUNTER → 2022-04-04 13:35 | Outpatient (CLI) | payer MEDICARE, SELFPAY ==
--- NOTE | ~2022-04-04 | MR_ITS ---
MRI of the lumbar spine Clinical History: Cauda equina syndrome Technique: Axial T2-weighted images, and sagittal T1-weighted, T2-weighted, and T2 fat-sat images wer e acquired. Findings: No acute fracture identified. There is a 5-6 mm anterolisthesis of L4 over L5. No bone tian ow signal abnormality seen. At L1-L2, there is no disc bulge or herniation. There is minimal facet joint degenerative change. No spinal canal stenosis or neural foraminal narrowing. At L2-L3, there is no disc bulge or herniation. There is minimal facet arthropathy. No spinal canal s tenosis or neural foraminal narrowing. At L3-L4, disc bulge and mild facet arthropathy result in lateral recess stenosis bilaterally. Neural foramina are preserved. At L4-L5, disc bulge/uncovering and facet arthropathy result in mild central canal stenosis and later al recess stenosis bilaterally. There is mild bilateral neural foraminal narrowing. At L5-S1, there is no disc bulge or herniation. There is mild facet arthropathy. No spinal canal sten osis or neural foraminal narrowing. Paravertebral soft tissues are unremarkable. Impression: 5-6 mm anterolisthesis of L4 over L5. Mild degenerative spondylosis, as detailed above. Reviewed, dictated and finalized at [facility]. GE OVER Impression: 5-6 mm anterolisthesis of L4 over L5. Mild degenerative spondylosis, as detailed above.
== END ==
PROVIDERS: PCP Family Medicine; Visit Provider Family Medicine
DX: M48.061 Spinal stenosis, lumbar region without neurogenic claudication (principal); M47.816 Spondylosis without myelopathy or radiculopathy, lumbar region
CPT/HCPCS: 72148

== ENCOUNTER 2022-08-23 13:14 | Outpatient (CLI) | payer MEDICARE, SELFPAY ==
--- NOTE | ~2022-08-23 | US_ITS ---
US thyroid INDICATION: Nontoxic thyroid nodule TECHNIQUE: Real-time sonographic images of the thyroid gland were obtained. COMPARISON: No prior studies for comparison. FINDINGS: The right thyroid lobe measures 5 x 2.3 x 2.2 cm. The left thyroid lobe measures 5.1 x 2.7 x 1.8 cm. There is normal vascularity in both lobes. Both lobes are somewhat heterogeneous with mult iple small nodules. Largest dominant nodule in the right lobe measures 6 x 4 x 4 mm and is hypoechoic , solid, wider than tall, smoothly marginated without calcifications, TR 4. Dominant discrete nodule in the left lobe measures 1.9 x 1.5 x 1.4 cm and is predominantly solid, hyp oechoic, wider than tall, smoothly marginated with punctate echogenic foci, TR 5. IMPRESSION: 1. Left thyroid mass measures 1.9 cm, TR 5, Ultrasound-guided fine-needle aspiration biopsy recommen ded. Reviewed, dictated and finalized at location [] IMPRESSION: 1. Left thyroid mass measures 1.9 cm, TR 5, Ultrasound-guided fine-needle aspi ration biopsy recommended.
== END 2022-08-23 13:15 | disposition home or self-care (01) ==
PROVIDERS: PCP Family Medicine; Visit Provider Family Medicine
DX: E04.1 Nontoxic single thyroid nodule (principal)
CPT/HCPCS: 76536

== ENCOUNTER 2022-09-13 12:25 | Outpatient (CLI) | payer MEDICARE, SELFPAY ==
--- NOTE | ~2022-09-13 | US_ITS ---
EXAMINATION: US FNA w image guidance DATE: 09/13/2022 13:31 INDICATION: Left thyroid mass TECHNIQUE: A time-out was performed to verify the patient's name, date of , and procedure to be performed . The procedure and its benefits and risks were discussed with the patient. Risks specifically discus sed included bleeding and infection. The patient understood the risks and agreed to proceed. The neck was prepped and draped in the usual sterile manner. 3 mL 1% lidocaine was used for local anesthesia . 6 passes were made with a 25G needle into the lesion. Appropriate needle location was documented with continuous sonographic guidance. A sterile bandage was applied. There were no immediate compli cations. FINDINGS: Grayscale ultrasound images demonstrate biopsy needles advanced into a 2.1 cm solid hypoechoic TI RAD S 5 mass at the inferior left thyroid. IMPRESSION: 1. Successful ultrasound-guided fine needle aspiration of a 2.1 cm TI RADS 5 mass at the inferior le ft thyroid. Reviewed, dictated and finalized at location A. IMPRESSION: 1. Successful ultrasound-guided fine needle aspiration of a 2.1 cm TI RADS 5 m ass at the inferior left thyroid.
== END 2022-09-13 12:26 | disposition home or self-care (01) ==
PROVIDERS: PCP Family Medicine; Visit Provider Family Medicine
DX: E04.1 Nontoxic single thyroid nodule (principal)
CPT/HCPCS: 10005; 88173; 88305

== ENCOUNTER 2022-09-20 08:05 | Inpatient (IN) | payer MEDICARE, SELFPAY ==
[2022-09-20] VITALS (14 sets, daily range): BP systolic 131–157; BP diastolic 49–70; PULSE 84–97; RESP 14–20; TEMP 36.6–37.8; O2SAT 95–100
--- NOTE | ~2022-09-20 | XR_ITS ---
EXAMINATION: XR ankle LT min 3V DATE: 09/20/2022 10:50 INDICATION: Left ankle pain and swelling. Fall. TECHNIQUE: 3 views of left ankle were obtained. COMPARISON: None. FINDINGS: Bone alignment is normal. No fracture. There is osteoarthritis of the ankle joint including an osteochondral lesion of medial talar dome. There is mild to moderate osteoarthritis of some of th e midfoot joints. There are loose bodies in the ankle joint posteriorly. There is heterotopic ossific ation at the dorsal aspect of the midfoot. There is heterotopic ossification distal to lateral malleo kendra. There are enthesophytes at the posterior and plantar aspects of calcaneal tuberosity. Ankle soft tissue swelling is noted. IMPRESSION: 1. Polyarticular osteoarthritis. 2. Ankle joint loose bodies. Reviewed, dictated and finalized at location A.
--- NOTE | ~2022-09-20 | XR_ITS ---
EXAM: XR hip BI 2V w AP pelvis DATE: 09/22/2022 17:40 HISTORY: left hip pain . COMPARISON: X-ray pelvis and femurs 09/20/2022. FINDINGS: Decreased mineralization. No fracture or dislocation. No lytic or blastic lesion. Lumbar d egenerative disc disease. Mild degenerative changes in the bilateral SI joints and hips. Mild scatter ed hip and pelvic enthesopathy. Surgical clip over the left femoral canal. No erosion or periosteal c hange. Soft tissues within normal limits. IMPRESSION: No acute osseous finding in the pelvis or hips. Reviewed, dictated and finalized at location K.
--- NOTE | ~2022-09-20 | XR_ITS ---
EXAMINATION: XR lg joint inject/asp w image DATE: 09/21/2022 13:16 INDICATION: Left knee joint effusion. TECHNIQUE: Consent was provided by the patient's . The skin overlying the left knee joint was pre pped and draped in usual sterile fashion. Anesthetic was administered with 1% lidocaine subcutaneous ly. An 18 G needle was advanced under fluoroscopic guidance into the joint. Fluid was aspirated. The needle was removed and the entry site was cleaned and dressed. There were no immediate complication s. Fluoroscopy exposure time was 0.1 minutes. The total number of images was 1. FINDINGS: Real-time fluoroscopy demonstrates a left knee joint effusion. IMPRESSION: 1. Fluoroscopy guided left knee joint aspiration yielding 110 mL yellow fluid. Reviewed, dictated and finalized at location A.
--- NOTE | ~2022-09-20 | US_ITS ---
EXAMINATION: US venous doppler [facility] DATE: 09/20/2022 17:20 INDICATION: pain in legs . TECHNIQUE: Grayscale images without and with compression and Doppler images of the bilateral lower ex tremity veins were obtained. COMPARISON: None FINDINGS: The right common femoral vein, profunda (deep) femoral vein, femoral vein, popliteal vein, peroneal v ein, posterior tibial veins, gastrocnemius vein, and greater saphenous vein are patent. The left common femoral vein, profunda (deep) femoral vein, femoral vein, popliteal vein, peroneal v ein, posterior tibial veins, gastrocnemius vein, and greater saphenous vein are patent. IMPRESSION: 1. Patent bilateral lower extremity veins. No evidence of deep venous thrombosis. Reviewed, dictated and finalized at location K. IMPRESSION: 1. Patent bilateral lower extremity veins. No evidence of deep venous thrombos is.
--- NOTE | ~2022-09-20 | CT_ITS ---
EXAMINATION: CT brain wo con DATE: 09/20/2022 08:53 INDICATION: Head injury. TECHNIQUE: Computed tomography (CT) of the head was performed without intravenous contrast. The mA wa s adjusted according to patient size. Iterative reconstruction technique was employed. The dose-lengt h product was 681.00 mGy-cm. COMPARISON: Head CT 04/07/2019 FINDINGS: There is no intracranial hemorrhage, acute infarction, or abnormal intracranial mass lesion . There are scattered areas of low attenuation in the cerebral white matter, which is within normal l imits for the patient's age. The ventricles are normal in size. There is mild mucosal thickening in t he ethmoid sinuses. There are likely changes of ocular lens replacement surgeries. The mastoid air ce lls are normal. There is a 1.8 cm mass in the scalp on the left, increased from 0.8 cm on 04/07/2019. IMPRESSION: 1. Normal aging brain. 2. Left scalp mass with increase in size from 04/07/2019, which may be a sebaceous cyst. Reviewed, dictated and finalized at location A. IMPRESSION: 1. Normal aging brain. 2. Left scalp mass with increase in size from 04/07/2019, which may be a sebaceou s cyst.
--- NOTE | ~2022-09-20 | XR_ITS ---
EXAMINATION: XR lumbar puncture diagnostic DATE: 09/26/2022 17:14 INDICATION: Altered mental status TECHNIQUE: The procedure including the risks and benefits was discussed with the patient's . Risks discussed included spinal headache, cerebrospinal fluid leak, bleeding, and infection. The pat ient understood the risks and agreed to proceed. A timeout was performed to verify the patient's n delmar, date of , and procedure to be performed. The skin overlying the L2-L3 level was prepped an d draped in usual sterile fashion. Subcutaneous 1% lidocaine was used for local anesthesia. A 20 ga uge spinal needle was advanced under fluoroscopic guidance along the right paramedian approach. Openi ng pressure was obtained and fluid collected. The needle was removed and the entry site was cleaned a nd dressed. There were no immediate complications. A total of 3 fluoroscopic image(s) were obtained. The amount of fluoroscopy time used during this procedure was 0.5 minutes. The patient was returned to his room with no immediate complications. FINDINGS: Real-time fluoroscopy demonstrates the needle at the L2-L3 level. Opening pressure was 14 c m water. (Normal range is variably defined as 6-20 cm water and up to 25 cm water in obese patients. Pressure >25 cm water is one of the modified Dandy criteria for idiopathic intracranial hypertension) . 13 mL of clear, colorless fluid was collected in 4 tubes. IMPRESSION: 1. Successful fluoro-guided lumbar puncture with normal opening pressure of 14 cm water. Reviewed, dictated and finalized at location A.
--- NOTE | ~2022-09-20 | CT_ITS ---
EXAMINATION: CT cervical spine wo con DATE: 09/20/2022 08:53 INDICATION: Head injury. TECHNIQUE: Computed tomography (CT) of the cervical spine was performed without intravenous contrast. Automated exposure control and iterative reconstruction technique were employed. The dose-length pro duct was 367.63 mGy-cm. COMPARISON: None FINDINGS: There are nodules in the thyroid measuring up to 2.3 cm. There is 4 degrees levocurvature o f cervical spine. There is 2 mm retrolisthesis of C5 on C6. There is mild height loss of T3 vertebral body, likely chronic. There is severely decreased disc height at C5-C6. The following disc levels ar e specifically discussed: C2-C3: There is no uncovertebral joint osteoarthritis. There is severe bilateral facet joint osteoart hritis. There is no neural foraminal stenosis. There is no central canal stenosis. C3-C4: There is mild bilateral uncovertebral joint osteoarthritis. There is severe right and moderate left facet joint osteoarthritis. There is moderate neural foraminal stenosis. There is mild central canal stenosis. C4-C5: There is mild bilateral uncovertebral joint osteoarthritis. There is mild bilateral facet join t osteoarthritis. There is no neural foraminal stenosis. There is mild central canal stenosis. C5-C6: There is severe bilateral uncovertebral joint osteoarthritis. There is moderate bilateral face t joint osteoarthritis. There is mild right and moderate left neural foraminal stenosis. There is mil d central canal stenosis. C6-C7: There is no uncovertebral joint osteoarthritis. There is mild bilateral facet joint osteoarthr itis. There is no neural foraminal stenosis. There is no central canal stenosis. C7-T1: There is no uncovertebral joint osteoarthritis. There is mild right and moderate left facet jolly int osteoarthritis. There is no neural foraminal stenosis. There is no central canal stenosis. IMPRESSION: 1. No acute fracture. 2. Severe spondylosis at C5-C6 and mild spondylosis at other levels. Reviewed, dictated and finalized at location A.
--- NOTE | ~2022-09-20 | XR_ITS ---
Portable chest x-ray Comparison: 08/29/2017 Clinical History: Status post fall Findings: Lungs are clear, without focal consolidation or pleural effusion. Possible COPD. Cardiome diastinal silhouette is stable, now with pacemaker in place. Calcified rounded structure present in t he right upper quadrant. Impression: Clear lungs. Possible COPD. Pacemaker in place. Probable calcified round structure in the right upper quadrant, possibly calcified gallstone. Reviewed, dictated and finalized at location M. Impression: Clear lungs. Possible COPD. Pacemaker in place. Probable calcified round structure in the right upper quadrant, possibly calcif ied gallstone.
--- NOTE | ~2022-09-20 | XR_ITS ---
XR chest 1V portable 09/24/2022 13:05 Indication: Fever. Procedure: AP portable chest Comparison: Comparison to multiple prior studies sequentially, with oldest reviewed study dated 03/2015. Findings: Cardiomegaly. Asymmetric left-sided airspace disease. Elevated left diaphragm. Small left p leural effusion. Status post median sternotomy for CABG. No acute osseous abnormality. Impression: 1: Interval development of asymmetric left-sided airspace disease, compatible with pneumonia. Reviewed, dictated and finalized at location A. Impression: 1: Interval development of asymmetric left-sided airspace disease, compatible w ith pneumonia.
--- NOTE | ~2022-09-20 | XR_ITS ---
EXAMINATION: XR pelvis 1-2V DATE: 09/20/2022 09:16 INDICATION: Left leg pain. Fall. TECHNIQUE: An anteroposterior view of the pelvis was obtained. COMPARISON: None. FINDINGS: There is lumbar dextrocurvature and severe spondylosis. No fracture. There is mild osteoart hritis of the hips. IMPRESSION: 1. Mild osteoarthritis of the hips. Reviewed, dictated and finalized at location A.
--- NOTE | ~2022-09-20 | XR_ITS ---
EXAMINATION: XR femur LT min 2V DATE: 09/20/2022 09:16 INDICATION: Left thigh pain. Fall. TECHNIQUE: 2 views of left femur on 4 radiographs were obtained. COMPARISON: None. FINDINGS: Bone alignment is normal. No fracture. There is moderate left knee osteoarthritis. There is mild left hip osteoarthritis. There is a moderate-sized left knee joint effusion. There are surgical clips in the soft tissues. IMPRESSION: 1. Polyarticular osteoarthritis. 2. Moderate-sized left knee joint effusion. Reviewed, dictated and finalized at location A.
--- NOTE | ~2022-09-20 | XR_ITS ---
XR ankle LT min 3V DATE: 09/23/2022 13:19 INDICATION: Fall. Pain. TECHNIQUE: 3 views COMPARISON: None FINDINGS: No significant soft tissue swelling is identified medially or laterally. There is distal Achilles tendon calcification and mild posterior and mild to moderate plantar calcane al enthesopathy. There is osteopenia. Possible intra-articular loose body at the tibiotalar joint medially. There are bony densities along the superior aspect of the anterior process of the talus and the proxi mal dorsal aspect of the navicular bone which may be due to avulsion fractures of uncertain age, most likely old.. Clinical correlation for point tenderness is recommended. No recent fracture or dislocation the ankle or disruption of the ankle mortise is evident. IMPRESSION: No interval change since 09/20/2022 Reviewed, dictated and finalized at location A.
--- NOTE | ~2022-09-20 | XR_ITS ---
MODIFIED ESOPHAGRAM HISTORY: Cough TECHNIQUE: Modified barium esophagram was performed by speech pathologist under radiologist fluorosco pic guidance. This was recorded on tape. The exam was reviewed on 09/23/2022 11:45 CDT. The DAP for this procedure was 3 Gycm2. Fluoroscopy time is 1.6 minutes. FINDINGS: Lateral projection of the cervical spine demonstrates normal alignment. There is normal s wallowing function without penetration or aspiration.. IMPRESSION: 1: Normal swallowing function without penetration or aspiration. 2: Please refer to speech pathologist report for additional detail. Reviewed, dictated and finalized at location A.
--- NOTE | ~2022-09-20 | CT_ITS ---
Non-contrast Head CT History: Confusion COMPARISON: 09/20/2022 Technique: Axial non-contrast imaging of the brain was performed. Dose reduction technique was used on this scan by utilizing automated exposure control and iterative reconstruction technique. The dose -length product (DLP) was 681.00 mGy-cm. Findings: There is no evidence of intracranial hemorrhage, mass lesion, or acute infarct. Brain par enchyma appears normal. The ventricles and subarachnoid spaces are mildly dilated. The calvarium ap pears normal. The visualized paranasal sinuses and mastoid air cells are clear. Stable left scalp ma ss as compared to recent prior exam. Impression: No acute abnormality seen. Stable left scalp mass as compared to recent prior exam. Mild generalized atrophy. Reviewed, dictated and finalized at location . Impression: No acute abnormality seen. Stable left scalp mass as compared to recent prior exam. Mild generalized atrophy.
--- NOTE | ~2022-09-20 | XR_ITS ---
EXAMINATION: XR knee LT 3V DATE: 09/20/2022 09:16 INDICATION: Left leg pain. Fall. TECHNIQUE: 3 views of left knee were obtained. COMPARISON: None. FINDINGS: Bone alignment is normal. No fracture. There is moderate osteoarthritis of lateral and holman llofemoral compartments and mild osteoarthritis of medial compartment. There is chondrocalcinosis of the menisci. There is a moderate-sized knee joint effusion. There are surgical clips in the posterior medial soft tissues. IMPRESSION: 1. Moderate left knee osteoarthritis. 2. Moderate-sized left knee joint effusion. Reviewed, dictated and finalized at location A.
--- NOTE | 2022-09-20 08:11 | ECG_ITS ---
Measurements Intervals [place] Rate: 86 P: 60 FL: 142 QRS: 12 QRSD: 86 T: 65 QT: 337 QTc: 405 Interpretive Statements SINUS RHYTHM DELAYED PRECORDIAL R/S TRANSITION NONSPECIFIC ST & T-WAVE ABNORMALITY- ANTEROLAT/HIGH LAT LEADS BASELINE ARTIFACT- I, II, III, AVR, AVL, AVF BORDERLINE ECG NO PREVIOUS ECG AVAILABLE FOR COMPARISON Electronically Signed On 09-20-2022 8:52:17 CDT by Asa Rodriguez D.O.
--- NOTE | 2022-09-20 08:30 | ED.FALL ---
HPI - Fall General Chief Complaint: Fall Stated Complaint: FALL Time Seen by Provider: 09/20/22 08:10 History of Present Illness HPI Narrative: 82-year-old male with recent pacemaker placement presents with fall, he states that he was going to the bathroom and next he knew he was on the floor, he is reporting pain in his left knee, does not have pain anywhere else. Per family at bedside, this is happened multiple times in the past, but seems to be worse since he had his pacemaker recently with more weakness and feel like his legs cannot hold him Related Data Home Medications Medication Instructions Recorded Confirmed aspirin 81 mg tablet,delayed 81 mg PO DAILY 03/24/19 08/13/22 release atorvastatin 80 mg tablet 40 mg PO BID 03/24/19 08/13/22 ferrous sulfate 325 mg (65 mg 325 mg PO BID 03/24/19 08/13/22 iron) tablet furosemide 20 mg tablet (Lasix) 40 mg PO BID 03/24/19 08/13/22 latanoprost 0.005 % eye drops 1 drop ophthalmic (eye) DAILY 03/24/19 08/13/22 nitroglycerin 0.4 mg sublingual 0.4 mg sublingual Q5M PRN Pain 03/24/19 08/13/22 tablet tamsulosin 0.4 mg capsule 0.4 mg PO DAILY 03/24/19 08/13/22 timolol 0.5 % eye drops (Betimol) 1 drop LEFT EYE Q12H 04/13/19 08/13/22 hydrochlorothiazide 12.5 mg capsule 12.5 mg PO DAILY 11/21/20 08/13/22 Allergies Allergy/AdvReac Type Severity Reaction Status Date / Time ciprofloxacin Allergy Unknown loss of Verified 08/13/22 13:08 appetite prednisone Allergy Unknown Palpitation Verified 08/13/22 13:08 s sulfamethizole Allergy Unknown loss of Verified 08/13/22 13:08 appetite trimethoprim Allergy Unknown loss of Verified 08/13/22 13:08 appetite Review of Systems Review of Systems: CONST: No fever. HEENT: No sore throat C/V: No chest pain RESP: No cough GI: No abdominal pain : No dysuria. M/S: Left knee pain SKIN: No rash. NEURO: [No headache or focal numbness or weakness] PSYCH: [No depression] [facility] Past Medical History Medical History Aortic stenosis Status post porcine valve replacement in 2018. Benign prostatic hyperplasia Carotid artery disease Status post right carotid endarterectomy in 2005. Chronic kidney disease, stage 3 unspecified Coronary artery disease With history of stents and bypass. 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 He refused further testing, but there is documentation that he most likely has sleep apnea. Osteoarthritis Paroxysmal atrial fibrillation Periodontal disease Stage 3 chronic kidney disease Baseline creatinine runs between 1.4 and 1.5. Type 2 diabetes mellitus Vitamin D deficiency Surgical History Surgical History History of aortic valve replacement with porcine valve (~12/2017) History of arthroplasty of right knee (08/31/15) History of coronary artery stent placement (~2007) x4. History of four vessel coronary artery bypass graft (~12/2017) History of right-sided carotid endarterectomy (~2005) History of tonsillectomy and adenoidectomy History of transurethral resection of prostate Family History Family History Father Carcinoma of colon Mother Family history of coronary artery disease Sibling Family history of malignant neoplasm of breast in first degree relative Social History Social History Social History: Surrogate decision maker: Evangelina Mixon, spouse. Code status: Full code. Smoking packs per day: 1 Smoking cigarettes per day: 20.0 Years smoked: 36 Smoking pack-years: 36.00 Smoking status: Never smok
[2022-09-20 10:23] LABS: Basophils Percent Auto 0.2 % (0.2-1.2); Eosinophils Percent Auto 0.1 % (0-4.4); Hematocrit 36.9 % (42.0-52.0); Hemoglobin 11.5 g/dL (14.0-18.0); Immature Granulocyte Absolute 0.05 K/mm3 (0.00-0.031); Immature Granulocyte Percent A 0.4 % (0-0.5); Immature Platelet Fraction Pct 5.5 % (0.9-11.2); Lymphocytes Absolute Auto 2.15 K/mm3 (0.9-3.2); Lymphocytes Percent Auto 17.5 % (18.3-44.2); Mean Corpuscular HGB Conc 31.2 g/dl (32-36); Mean Corpuscular Hemoglobin 31.5 pg (26-34); Mean Corpuscular Volume 101.1 fl (80-100); Mean Platelet Volume 11.7 fl (7.4-10.4); Monocytes Percent Auto 7.7 % (2.6-8.5); Neutrophils Absolute Auto 9.1 K/mm3 (1.3-6.7); Neutrophils Percent Auto 74.1 % (45.5-73.1); Platelet Count Result 145 k/mm3 (150-375); Red Blood Count 3.65 M/mm3 (4.6-6.20); Red Cell Distribution Width 12.8 % (11.5-14.5); White Blood Count 12.3 K/mm3 (4.5-10.0)
[2022-09-20 11:07] LABS: Anion Gap 5 mmol/L (8-16); Blood Urea Nitrogen 40 mg/dL (9-20); Calcium 10.1 mg/dL (8.4-10.2); Carbon Dioxide 27 mmol/L (22-30); Chloride 107 mmol/L (98-107); Estimated CRCL calculation 31 ml/min; Estimated Glomerular Filt Rate 39; Glucose 190 mg/dL (65-110); Sodium 139 mmol/L (137-145)
--- NOTE | 2022-09-20 11:56 | PC.NURSE ---
Upon attempting to stand and dress patient for discharge, the patient was unable to stand without max assistance. He stated he was favoring his injured leg. Pt deemed unsafe to continue dressing and attempt w/c. and son at bedside and agree that he is unsafe and they wont be able to get him inside the house. Pt positioned back in bed. Dr. Moya notified.
--- NOTE | 2022-09-20 12:24 | PCCCNOTE ---
Called to ED for pt in rm 11 who had fall and is having difficulty walking at home. Pt previously has been going to PT outpt and maintaining mobility at home. One week age pt had pacemaker placed and has not had PT for 7 to 10 days. Pt is now to weak to going outpt and to weak to maintain self at home. Pt has [employer] and needs SNF placement. I explained to family SNF approval process takes a day or two or more. I spoke with Dr Moya and she will order PT/OT eval and admit as obs for placement. states pt has past stay at [facility] and would like to go back there.
--- NOTE | 2022-09-20 14:06 | PM.IMHP ---
H&P: HPI History of Present Illness Date/Time: 09/20/22 15:00 Chief Complaint: Fall. Narrative: This is an 82-year-old gentleman with paroxysmal atrial fibrillation status recent post very pacemaker implantation, coronary artery disease status post CABG, aortic stenosis status post aortic valve replacement, hypertension, type 2 diabetes mellitus, benign prostatic hyperplasia, and history of deep venous thrombosis who presented to the emergency department via EMS from home for evaluation after a fall. He is a fair historian and his provides additional information with the patient's permission. He had a pacemaker inserted on Saturday at [facility] in and was discharged home the same afternoon. indicates that is not necessarily unusual for him to have confusion for couple of days following anesthesia but his confusion seems to be getting worse as each day passes. He has also been quite weak and this morning he fell when attempting to get up to use the restroom. has repeatedly told him to use the urinal at his bedside given his weakness however he was confused and got up anyway. He does not exactly recall the circumstances of the fall but he believes he got tripped up in the rug in the kitchen. He landed on his left side and he denies head trauma and loss of consciousness. At the time my evaluation he complains of pain in the left knee and left ankle. Numerous CTs and radiographs done in the ED were luckily negative for acute findings. He was to be discharged home however was maximum assist when attempting to transfer to the wheelchair and he is being admitted in this setting as he likely will need rehab placement before returning home. Review of Systems Review of Systems: Twelve systems were reviewed. No fever, chills, or sweats. No cold or flu symptoms. He denies chest pain shortness a breath. Appetite has been okay. No nausea, vomiting, or diarrhea. Denies dysuria. Except as documented all other systems were reviewed and are negative. [facility] Past Medical History Medical History (Updated 09/20/22 @ 21:12 by Daisy Ralph PA-C) Aortic stenosis Status post porcine valve replacement in 2018. Benign prostatic hyperplasia Carotid artery disease Status post right carotid endarterectomy in 2005. Chronic kidney disease, stage 3 unspecified Coronary artery disease With history of stents and bypass. Current use of shelter anticoagulation Deep venous thrombosis Essential hypertension Glaucoma Hyperlipidemia Nephrolithiasis Obstructive sleep apnea patient reports that he was unable to complete the entire sleep study due to waking up several times to go to the bathroom. He refused further testing, but there is documentation that he most likely has sleep apnea. Osteoarthritis Paroxysmal atrial fibrillation Periodontal disease Stage 3 chronic kidney disease Baseline creatinine runs between 1.4 and 1.5. Thrombocytopenia Type 2 diabetes mellitus Vitamin D deficiency Surgical History Surgical History (Updated 09/20/22 @ 14:12 by Daisy Ralph PA-C) History of aortic valve replacement with porcine valve (12/2017) History of arthroplasty of right knee (08/31/15) History of coronary artery stent placement (2007) x4. History of four vessel coronary artery bypass graft (12/2017) History of permanent cardiac pacemaker placement History of right-sided carotid endarterectomy (2005) History of tonsillectomy and adenoidectomy History of transurethral resection of prostate Family History Family History Father Carcinoma of colon Mother Family history of coronary artery disease Sibling Family history of malignant neoplasm of breast in first degree relative Social History Social History Social History: Surrogate decision maker: Evangelina Mixon, spouse. Code status: Full code. Smoking packs
--- NOTE | 2022-09-20 15:15 | ADMGEN ---
This patient, Pablo Mixon, was admitted to [facility] Room 321-. Patient/family oriented to hospital policies and general routines including ID bracelet, bed and alarms, visiting hours, pain management, procedures, bathroom and other care routines, personal items, smoking policy, room service/diet, and visiting hours. Information on how to activate the Rapid Response Team has been discussed. Patient/Family are encouraged to report perceived risks to care and to ask questions if they do not understand what they are told or what they should do.
--- NOTE | 2022-09-20 16:06 | PCOTNOTE ---
Pt. currently has bedrest orders. Called Hospitalist to change orders, hospitalist has not yet had opportunity to see pt. and requested admitting physician be called. Called and left message. Following.
[2022-09-20] MEDS: ACETAMINOPHEN 325 MG TABLET 650 MG PO (20:37)
[2022-09-20 21:58] LABS: INR 1.2; Prothrombin Time 16.2 Seconds (11.1-14.7)
[2022-09-20] MEDS: TIMOLOL MALEATE 0.5% OP SOLN 5 ML BOTTLE 1 DROP LEFT EYE (22:09)
[2022-09-20] MEDS: SODIUM CHLORIDE 0.9% IV 1,000 ML 100 ML IV CONT (22:10)
[2022-09-20 22:13] LABS: Creatine Kinase 277 U/L (55-170); Iron 13 ug/dL (49-181)
[2022-09-20 22:23] LABS: Percent Iron Saturation 5 % (20-50)
[2022-09-20 22:47] LABS: Thyroid Stimulating Hormone Reflex 0.881 uIU/mL (0.465-4.68)
[2022-09-20 22:58] LABS: Glucose Point of Care 187 mg/dl (65-105)
[2022-09-20 23:21] LABS: Folic Acid 9.3 ng/mL (2.76->20)
[2022-09-21 00:04] LABS: Appearance Urine Clear (Clear); Bacteria Urine None Seen /hpf; Bilirubin Urine Negative (Negative); Blood Urine Trace (Negative); Color Urine Yellow (Yellow); Glucose Urine UA Negative (Negative); Ketones Urine Negative (Negative); Leukocyte Esterase Ur Negative LEU/UL (Negative); Nitrate Urine Negative (Negative); Protein Urine 1+ mg/dL (Negative); RBC Urine 0-2 /hpf (0-2); Specific Grav Ur 1.015 (1.001-1.035); Squamous Epithelial Cell Urine None seen /hpf (Few); WBC Urine 0-5 /hpf; pH Urine 5.5 (5.0-9.0)
[2022-09-21 00:20] LABS: Add Urine Microscopic? YES
[2022-09-21 06:00] VITALS: BP 162/63; PULSE 81; RESP 18; TEMP 37.1; O2SAT 93
[2022-09-21 07:42] LABS: Hematocrit 36.2 % (42.0-52.0); Hemoglobin 11.4 g/dL (14.0-18.0); Mean Corpuscular HGB Conc 31.5 g/dl (32-36); Mean Corpuscular Hemoglobin 31.3 pg (26-34); Mean Corpuscular Volume 99.5 fl (80-100); Platelet Count Result 140 k/mm3 (150-375); Red Blood Count 3.64 M/mm3 (4.6-6.20); Red Cell Distribution Width 12.3 % (11.5-14.5); White Blood Count 11.7 K/mm3 (4.5-10.0)
[2022-09-21 08:03] LABS: Alanine Aminotransferase 18 U/L (6-50); Albumin Level 3.4 g/dL (3.5-5.1); Alkaline Phosphatase 69 U/L (38-126); Anion Gap 5 mmol/L (8-16); Aspartate Amino Transferase 37 U/L (17-59); Bilirubin,Total 1.7 mg/dL (0.2-1.3); Blood Urea Nitrogen 34 mg/dL (9-20); Calcium 10.2 mg/dL (8.4-10.2); Carbon Dioxide 29 mmol/L (22-30); Chloride 105 mmol/L (98-107); Estimated CRCL calculation 35 ml/min; Estimated Glomerular Filt Rate 45; Glucose 165 mg/dL (65-110); Sodium 139 mmol/L (137-145)
--- NOTE | 2022-09-21 08:06 | PM.IMPN ---
Progress Note: A&P Assessment and Plan (1) Effusion of left knee joint: Code(s): M25.462 - Effusion, left knee Status: Acute Assessment and Plan: Patient with left knee pain and found to have a left knee effusion. He has knee considerable pain. His white count is elevated and now having low-grade fevers. will proceed with left knee arthrocentesis for symptomatic improvement and therapeutic testing. Consider orthopedic consult concerns for septic arthritis. (2) Confusion: Code(s): R41.0 - Disorientation, unspecified Status: Acute Assessment and Plan: Patient alert and mildly confused today. TSH is normal. B12 level is low which could contribute to confusion. Will replace B12. UAs clear. Chest x-ray is clear. He does have low-grade fever. Will check blood cultures. Pacemaker incision area does not appear to be infected. Head CT shows no acute findings. Continue to monitor. (3) Fall from ground level: Code(s): W18.30XA - Fall on same level, unspecified, initial encounter Status: Acute Assessment and Plan: The patient presented to the emergency department from home for evaluation after a fall. His fall was due to his generalized weakness; he denies prodromal symptoms and syncope. No fractures noted. PT/OT ordered. (4) Generalized weakness: Code(s): R53.1 - Weakness Status: Acute Assessment and Plan: As above (5) Type 2 diabetes mellitus: Code(s): E11.9 - Type 2 diabetes mellitus without complications Status: Acute Assessment and Plan: A1c 7.1 in Mar. The patient's blood glucose was reviewed on 09/21 Glucose remains well controlled. Continue AccuCheks covering with sliding scale. Hypoglycemia protocol available as needed. Continue to monitor (6) Chronic kidney disease, stage 3 unspecified: Code(s): N18.30 - Chronic kidney disease, stage 3 unspecified Status: Acute Assessment and Plan: Baseline creatinine was 1.4 -1.5 for the past 2 years. Creatinine 1.7 on admission now is back down to 1.5 with IV fluids. Suspect patient back at baseline. Will continue to follow renal function. (7) Macrocytic anemia: Code(s): D53.9 - Nutritional anemia, unspecified Status: Acute Assessment and Plan: Patient with mild anemia with hemoglobin in the 11-12 range. Macrocytosis noted. Found to be B12 deficient Consistent with B12 deficiency anemia. Will replace B12. (8) Thrombocytopenia: Code(s): D69.6 - Thrombocytopenia, unspecified Status: Acute Assessment and Plan: Patient has chronic mild thrombocytopenia. Platelet count 145K on admission and is actually better than his normal baseline. Will continue to monitor. Plan DVT Prophylaxis - SCDs Subjective Date/time seen: 09/21/22 08:06 Interval history: 82yo male with CAD, DM, HTN, pAFib and recent PM placement here for confusion. No CP or SOB. Feels better. Alert but mildly confused. Complains of left knee pain without change Exam Narrative: Tm 100.0 98.7 162/63 81 18 93% ra Gen - NARD Chest - CTA bilaterally, nml RR. Left upper chest PM site incision clean/dry/intact. No drainage. Minimal erythema noted around the incision site. CV - RRR S1/S2 Abd - Soft, NT/ND, Positive BS Ext - left knee edema. Pain with flexion/extension Neuro - Alert and oriented x2 (not year or month) Psych - Nml mood and affect Skin - mild bronzed erythema to the left knee Objective Data Vital Signs Vital Signs: Vital Signs - 24 hr 09/20/22 08:22 09/20/22 08:21 09/20/22 10:01 Temperature Pulse Rate 88 86 Respiratory Rate 20 20 Blood Pressure 142/61 H 131/55 L Pulse Oximetry 99 100 100 Oxygen Delivery Room Air 09/20/22 11:45 09/20/22 13:10 09/20/22 13:15 Temperature Pulse Rate 85 86 85 Respiratory Rate 19 14 17 Blood Pressure 142/70 H 151/69 H Pulse Oximetry 95 97 10
[2022-09-21] MEDS: amLODIPine BESYLATE 5 MG TABLET PO (08:28)
[2022-09-21] MEDS: hydroCHLOROthiazide 12.5 MG CAPSULE PO (08:29)
[2022-09-21] MEDS: TIMOLOL MALEATE 0.5% OP SOLN 5 ML BOTTLE 1 DROP LEFT EYE ×2 (08:29→20:24)
[2022-09-21] MEDS: FUROSEMIDE 20 MG TABLET PO ×2 (08:29→17:15)
[2022-09-21] MEDS: FERROUS SULFATE 325 MG TABLET DR PO ×2 (08:29→17:15)
[2022-09-21] MEDS: TAMSULOSIN HCL 0.4 MG CAPSULE PO (08:29)
[2022-09-21] MEDS: lisinopriL 20 MG TABLET 40 MG PO (08:29)
[2022-09-21] MEDS: CYANOCOBALAMIN INJ 1,000 MCG/ML VIAL 1000 MCG IM (08:29)
[2022-09-21] MEDS: LATANOPROST 0.005% OP SOLN 2.5 ML BTL 1 DROP EACH EYE (08:29)
[2022-09-21] MEDS: CYANOCOBALAMIN 1,000 MCG TABLET 1000 MCG PO (09:59)
--- NOTE | 2022-09-21 10:36 | PCOTNOTE ---
Attempted to see pt. for evaluation. Per nursing, pt. will likely be receiving knee aspiration later today on L knee which is causing pt. considerable pain. Pt. to be seen after aspiration for safety concerns and comfort of pt. Nursing aware. Following.
--- NOTE | 2022-09-21 13:17 | PCPTNOTE ---
The patient treatment was not able to be completed today due to being out of room for testing/knee aspiration. Will plan to continue treatment per plan of care.
[2022-09-21 14:00] VITALS: BP 149/67; PULSE 84; RESP 18; TEMP 36.8; O2SAT 100
--- NOTE | 2022-09-21 14:26 | PCOTNOTE ---
Attempted to see pt. for occupational therapy evaluation. Pt. currently confused and difficult to arouse, repeatedly falling asleep when attempting to wake. Pt. to be seen at later time due to safety concerns. Nursing aware.
[2022-09-21 15:16] LABS: Source Synovial Fluid Synovial fluid
[2022-09-21 15:17] LABS: Appearance Synovial Fluid Cloudy (Clear); Color Synovial Fluid Yellow (Colorless)
[2022-09-21 15:18] LABS: Nucleated Cell Synovial Fluid 20815 /uL (0-200); RBC Synovial Fluid 2000 /uL (0-0)
[2022-09-21 15:19] LABS: Lymphocytes Synovial Fluid 2 %; Monocytes Synovial Fluid 3 %; Neutrophils Synovial Fluid 95 % (0-25)
[2022-09-21 16:42] LABS: Glucose Point of Care 200 mg/dl (65-105)
[2022-09-21] MEDS: INSULIN ASPART (*BKC) 100 UNITS/ML SUB-Q (17:15)
[2022-09-21 22:00] VITALS: BP 145/54; PULSE 82; RESP 18; TEMP 37.4; O2SAT 99
[2022-09-21 22:03] LABS: Glucose Point of Care 187 mg/dl (65-105)
--- NOTE | 2022-09-21 23:01 | PC.NURSE ---
unable to obtain orthostatic vitals due to patient not wanting to get on the edge of the bed due to left knee pain.
--- NOTE | 2022-09-22 05:31 | PC.NURSE ---
Pt is alert, head of bed up 90 degrees, choked on water with straw use. Water removed from reach, will notify MD of new findings.
[2022-09-22 05:54] VITALS: BP 167/59; PULSE 69; RESP 16; TEMP 36.1; O2SAT 92
[2022-09-22 07:24] LABS: Basophils Percent Auto 0.2 % (0.2-1.2); Eosinophils Percent Auto 0.1 % (0-4.4); Hematocrit 33.7 % (42.0-52.0); Hemoglobin 10.8 g/dL (14.0-18.0); Immature Granulocyte Absolute 0.04 K/mm3 (0.00-0.031); Immature Granulocyte Percent A 0.4 % (0-0.5); Lymphocytes Absolute Auto 1.62 K/mm3 (0.9-3.2); Lymphocytes Percent Auto 14.9 % (18.3-44.2); Mean Corpuscular Hemoglobin 31.7 pg (26-34); Mean Corpuscular Volume 98.8 fl (80-100); Mean Platelet Volume 11.6 fl (7.4-10.4); Neutrophils Absolute Auto 8.2 K/mm3 (1.3-6.7); Neutrophils Percent Auto 75.4 % (45.5-73.1); Platelet Count Result 151 k/mm3 (150-375); Red Blood Count 3.41 M/mm3 (4.6-6.20); Red Cell Distribution Width 12.2 % (11.5-14.5); White Blood Count 10.8 K/mm3 (4.5-10.0)
[2022-09-22 07:27] LABS: Anion Gap 5 mmol/L (8-16); Bilirubin Indirect 1.2 mg/dL (0-1.1); Bilirubin,Total 1.5 mg/dL (0.2-1.3); Blood Urea Nitrogen 33 mg/dL (9-20); Calcium 10.2 mg/dL (8.4-10.2); Carbon Dioxide 28 mmol/L (22-30); Chloride 103 mmol/L (98-107); Estimated CRCL calculation 35 ml/min; Estimated Glomerular Filt Rate 45; Glucose 180 mg/dL (65-110); Sodium 136 mmol/L (137-145)
[2022-09-22 07:35] LABS: Hemoglobin A1C 6.9 % (<5.7)
[2022-09-22 07:59] LABS: Glucose Point of Care 148 mg/dl (65-105)
[2022-09-22] MEDS: amLODIPine BESYLATE 5 MG TABLET PO (08:37)
[2022-09-22] MEDS: hydroCHLOROthiazide 12.5 MG CAPSULE PO (08:37)
[2022-09-22] MEDS: LATANOPROST 0.005% OP SOLN 2.5 ML BTL 1 DROP EACH EYE (08:37)
[2022-09-22] MEDS: FUROSEMIDE 20 MG TABLET PO ×2 (08:37→16:33)
[2022-09-22] MEDS: lisinopriL 20 MG TABLET 40 MG PO (08:37)
[2022-09-22] MEDS: CYANOCOBALAMIN 1,000 MCG TABLET 1000 MCG PO (08:37)
[2022-09-22] MEDS: FERROUS SULFATE 325 MG TABLET DR PO ×2 (08:37→16:33)
[2022-09-22] MEDS: TIMOLOL MALEATE 0.5% OP SOLN 5 ML BOTTLE 1 DROP LEFT EYE ×2 (08:37→20:07)
[2022-09-22] MEDS: TAMSULOSIN HCL 0.4 MG CAPSULE PO (08:37)
[2022-09-22 09:02] VITALS: O2SAT 92
[2022-09-22 11:45] LABS: Glucose Point of Care 163 mg/dl (65-105)
[2022-09-22 14:00] VITALS: BP 134/76; PULSE 82; RESP 20; TEMP 36.7; O2SAT 99
--- NOTE | 2022-09-22 14:02 | PM.IMPN ---
Progress Note: A&P Assessment and Plan (1) Confusion: Code(s): R41.0 - Disorientation, unspecified Status: Acute Assessment and Plan: Patient alert and more confused today. TSH is normal. B12 level is low which could contribute to confusion; B12 replaced. UA is clear. Chest x-ray is clear. Low-grade fever has resolved. BCx NGTD. Pacemaker incision area does not appear to be infected. Head CT shows no acute findings. Related to anaesthesia? Occult infection? Does not take chronic opiates or benzos at home so doubt w/d. Continue to monitor. Speech therapy consulted. NPO until evaluated. Try Trazodone tonight. (2) Effusion of left knee joint: Code(s): M25.462 - Effusion, left knee Status: Acute Assessment and Plan: Patient with left knee pain and found to have a left knee effusion and considerable pain. His white count was elevated and had a low-grade fever. Left knee arthrocentesis: 110mL yellow fluid removed. 2K RBC, 21K WBC with 95% neutrophils and crystals. Gram stain showing no MO but many WBCs. [place] related to trauma and/or diana arthropathy. Allergic to Prednisone and concern for NSAIDs given his CKD. Start colchicine and follow closely. Add pepcid (3) Fall from ground level: Code(s): W18.30XA - Fall on same level, unspecified, initial encounter Status: Acute Assessment and Plan: The patient presented to the emergency department from home for evaluation after a fall. His fall was due to his generalized weakness; he denied prodromal symptoms and syncope. No fractures noted. PT/OT ordered. (4) Generalized weakness: Code(s): R53.1 - Weakness Status: Acute Assessment and Plan: As above (5) Type 2 diabetes mellitus: Code(s): E11.9 - Type 2 diabetes mellitus without complications Status: Acute Assessment and Plan: A1c 7.1 in Mar. The patient's blood glucose was reviewed on 09/22 Glucose remains well controlled. Continue AccuCheks covering with sliding scale. Hypoglycemia protocol available as needed. Continue to monitor (6) Chronic kidney disease, stage 3 unspecified: Code(s): N18.30 - Chronic kidney disease, stage 3 unspecified Status: Acute Assessment and Plan: Baseline creatinine was 1.4 -1.5 for the past 2 years. Creatinine 1.7 on admission now is back down to 1.5 with IV fluids. Suspect patient back at baseline. Will continue to follow renal function. (7) Macrocytic anemia: Code(s): D53.9 - Nutritional anemia, unspecified Status: Acute Assessment and Plan: Patient with mild anemia with hemoglobin in the 11-12 range. Macrocytosis noted. Found to be B12 deficient Consistent with B12 deficiency anemia. Will replace B12. (8) Thrombocytopenia: Code(s): D69.6 - Thrombocytopenia, unspecified Status: Acute Assessment and Plan: Patient has chronic mild thrombocytopenia. Platelet count 145K on admission and is actually better than his normal baseline possibly related to low B12. Will continue to monitor. (9) Paroxysmal A-fib: Code(s): I48.0 - Paroxysmal atrial fibrillation Status: Acute Assessment and Plan: EKG showing NSR. He is on Coumadin for AFib. INR 1.2 on admission. Resume Coumadin. Plan DVT Prophylaxis - SCDs Subjective Date/time seen: 09/22/22 14:02 Interval history: 82yo male with CAD, DM, HTN, pAFib and recent PM placement here for confusion. Alert but more confused. No CP or SOB. RN states patietn was down to 92% and O2 started. Family in the room and state the symptoms of confusion began a day after his pacemaker placement. states patient has a hx of trouble tolerating anaesthesia. Other family members have similar issues. Patient had an issue a few years ago after valve surgery and it took many weeks before he returned to baseline. He also had dysphagia requiring GTube. He does not have
[2022-09-22] MEDS: COLCHICINE 0.6 MG TABLET PO (16:33)
[2022-09-22] MEDS: WARFARIN (*PBKC) 3 MG TABLET PO (16:33)
[2022-09-22] MEDS: DEXTROSE 5%/0.9% SOD CHL 1,000 ML 70 ML IV CONT (16:34)
--- NOTE | 2022-09-22 16:40 | PCSTNOTE ---
Order for bedside swallowing evaluation and modified barium swallow study received. Attempted bedside evaluation but patient was not able to wake up enough to participate. Will leave on list and attempt evaluation when patient is able to participate.
[2022-09-22] MEDS: INSULIN ASPART (*BKC) 100 UNITS/ML SUB-Q (16:41)
[2022-09-22 16:45] LABS: Glucose Point of Care 229 mg/dl (65-105)
[2022-09-22 20:00] VITALS: O2SAT 99
--- NOTE | 2022-09-22 20:16 | PC.NURSE ---
Unable to fully arouse to administer meds safetly.
[2022-09-22 21:35] VITALS: PULSE 75; O2SAT 98
[2022-09-22 22:00] VITALS: BP 146/57; PULSE 76; RESP 18; TEMP 36.6; O2SAT 99
[2022-09-22 23:00] LABS: Glucose Point of Care 221 mg/dl (65-105)
[2022-09-23] VITALS (9 sets, daily range): BP systolic 98–151; BP diastolic 39–69; PULSE 73–84; RESP 18–20; TEMP 36.5–38.3; O2SAT 95–98
[2022-09-23] MEDS: DEXTROSE 5%/0.9% SOD CHL 1,000 ML 70 ML IV CONT (06:45)
[2022-09-23 07:20] LABS: Hemoglobin 10.2 g/dL (14.0-18.0); Mean Corpuscular HGB Conc 31.9 g/dl (32-36); Mean Corpuscular Hemoglobin 31.7 pg (26-34); Mean Corpuscular Volume 99.4 fl (80-100); Mean Platelet Volume 11.1 fl (7.4-10.4); Platelet Count Result 166 k/mm3 (150-375); Red Blood Count 3.22 M/mm3 (4.6-6.20); Red Cell Distribution Width 12.2 % (11.5-14.5); White Blood Count 9.8 K/mm3 (4.5-10.0)
[2022-09-23 07:24] LABS: INR 1.3; Prothrombin Time 16.7 Seconds (11.1-14.7)
[2022-09-23 07:25] LABS: Anion Gap 7 mmol/L (8-16); Blood Urea Nitrogen 36 mg/dL (9-20); Carbon Dioxide 28 mmol/L (22-30); Chloride 105 mmol/L (98-107); Estimated CRCL calculation 33 ml/min; Estimated Glomerular Filt Rate 41; Glucose 220 mg/dL (65-110); Potassium 4.5 mmol/L (3.4-5.0); Sodium 140 mmol/L (137-145)
[2022-09-23 08:07] LABS: Glucose Point of Care 213 mg/dl (65-105)
[2022-09-23] MEDS: TIMOLOL MALEATE 0.5% OP SOLN 5 ML BOTTLE 1 DROP LEFT EYE ×2 (08:41→20:59)
[2022-09-23] MEDS: LATANOPROST 0.005% OP SOLN 2.5 ML BTL 1 DROP EACH EYE (08:41)
[2022-09-23 11:56] LABS: Glucose Point of Care 194 mg/dl (65-105)
--- NOTE | 2022-09-23 12:15 | PCSTNOTE ---
Modified barium swallow study completed. Oral peripheral examination results within normal limits. Trials of thin liquid (by spoon, cup, and straw), pureed (by spoon), mixed (by spoon) and solid were given. Patient's swallowing functional ability was found to be within normal limits. Recommendations: regular diet texture with thin liquids. Thank you for the referral of this patient.
--- NOTE | 2022-09-23 12:24 | PM.IMPN ---
Progress Note: A&P Assessment and Plan (1) Confusion: Code(s): R41.0 - Disorientation, unspecified Status: Acute Assessment and Plan: Patient mildly obtunded and remains confused today. TSH is normal. B12 level was low which could contribute to confusion; B12 was replaced. UA is clear. Chest x-ray is clear. Low-grade fever has resolved. BCx NGTD. Pacemaker incision area does not appear to be infected. Head CT shows no acute findings. Related to anaesthesia? Occult infection? Does not take chronic EtOH, opiates or benzos at home so doubt w/d. Continue to monitor. Speech therapy consulted. NPO until evaluated. Did not get Trazodone last night. Check ammonia level, ABG (2) Effusion of left knee joint: Code(s): M25.462 - Effusion, left knee Status: Acute Assessment and Plan: Patient with left knee pain and found to have a left knee effusion and considerable pain. His white count was elevated and had a low-grade fever. Left knee arthrocentesis: 110mL yellow fluid removed. 2K RBC, 21K WBC with 95% neutrophils and crystals (MSU and CPPD). Gram stain showing no MO but many WBCs. Culture NGTD [place] related to trauma and/or crystal arthropathy. Consider concurrent septic arthritis but normally WBC>50K. Now having ankle pain so will xray this joint. Repeat hip xray again showing no fracture. He is allergic to Prednisone and concern for NSAIDs given his CKD. Started colchicine and will follow closely. Ortho Consult. Will cover with abx for now. (3) Fall from ground level: Code(s): W18.30XA - Fall on same level, unspecified, initial encounter Status: Acute Assessment and Plan: The patient presented to the emergency department from home for evaluation after a fall. His fall was due to his generalized weakness; he denied prodromal symptoms and syncope. No fractures noted. PT/OT ordered. (4) Generalized weakness: Code(s): R53.1 - Weakness Status: Acute Assessment and Plan: As above (5) Type 2 diabetes mellitus: Code(s): E11.9 - Type 2 diabetes mellitus without complications Status: Acute Assessment and Plan: A1c 7.1 in Mar. The patient's blood glucose was reviewed on 09/23 Glucose mildly elevated. Continue AccuCheks covering with sliding scale. Hypoglycemia protocol available as needed. Continue to monitor (6) Chronic kidney disease, stage 3 unspecified: Code(s): N18.30 - Chronic kidney disease, stage 3 unspecified Status: Acute Assessment and Plan: Baseline creatinine was 1.4 -1.5 for the past 2 years. Creatinine 1.7 on admission and remains stable. Suspect patient back at baseline. Will continue to follow renal function. (7) Macrocytic anemia: Code(s): D53.9 - Nutritional anemia, unspecified Status: Acute Assessment and Plan: Patient with mild anemia with hemoglobin in the 11-12 range. Macrocytosis noted. Found to be B12 deficient Consistent with B12 deficiency anemia. Will replace B12. Follow (8) Thrombocytopenia: Code(s): D69.6 - Thrombocytopenia, unspecified Status: Acute Assessment and Plan: Patient has chronic mild thrombocytopenia. Platelet count 145K on admission and is actually better than his normal baseline possibly related to low B12. Will continue to monitor. (9) Paroxysmal A-fib: Code(s): I48.0 - Paroxysmal atrial fibrillation Status: Acute Assessment and Plan: EKG showing NSR. He is on Coumadin for AFib. INR 1.2 on admission. Coumadin. Plan DVT Prophylaxis - Lovenox Subjective Date/time seen: 09/23/22 12:24 Interval history: 82yo male with CAD, DM, HTN, pAFib and recent PM placement here for confusion. More alert but still confused. Did not receive medications last night because RN stated patient was poorly responsive. Exam Narrative: AF 97.7 151/39 73 18 97% 1L Gen - NARD sitting up i
--- NOTE | 2022-09-23 13:16 | PCSTNOTE ---
Modified barium swallow study completed. Patient aspirated with thin liquids by spoon and cup, moderately thick liquids by cup. Penetration with pureed but no aspiration. Chin tuck and effortful swallow compensatory strategies were helpful in reducing the amount of residue. Recommendations: pudding thickened liquids and pureed texture food. Speech therapy recommended. Thank you for the referral of this patient.
[2022-09-23] MEDS: amLODIPine BESYLATE 5 MG TABLET PO (13:22)
[2022-09-23] MEDS: COLCHICINE 0.6 MG TABLET PO ×2 (13:23→20:59)
[2022-09-23] MEDS: FUROSEMIDE 20 MG TABLET PO ×2 (13:24→18:15)
[2022-09-23] MEDS: CYANOCOBALAMIN 1,000 MCG TABLET 1000 MCG PO (13:24)
[2022-09-23] MEDS: TAMSULOSIN HCL 0.4 MG CAPSULE PO (13:25)
[2022-09-23] MEDS: ACETAMINOPHEN 325 MG TABLET 650 MG PO ×2 (13:25→20:58)
[2022-09-23 13:48] LABS: Alveolar/Arterial O2 Gradient 30.7 mmHg; Base Excess ABG -0.2 mEq/l (+/-2.0); Fractional Inspired Oxygen 21 %; HCO3 ABG 23.6 mEq/l (22.0-26.0); Oxygen Content ABG 14.9 %vol (16.0-22.0); Oxygen Saturation ABG 95.9 % (95.0-100.0); Oxyhemoglobin 94.3 % THb (90.0-100.0); PCO2 ABG 35.3 mmHg (35.0-45.0); PO2 ABG 76.8 mmHg (80.0-100.0); PO2 FiO2 Ratio Arterial Blood 3.66 %; Total Hemoglobin 11.2 g/dL (12.0-18.0); pH ABG 7.443 (7.350-7.450)
[2022-09-23] MEDS: ENOXAPARIN 40 MG/0.4 ML SYRINGE SUB-Q (13:49)
[2022-09-23 13:50] LABS: Modified Allen's Test Pass; Site Drawn LEFT RADIAL
[2022-09-23] MEDS: cefTRIAXone 2 GM/NS 100 ML 2 GM/100 ML BAG IVPB (13:50)
[2022-09-23] MEDS: FAMOTIDINE 20 MG/2 ML VIAL IV PUSH ×2 (13:50→20:59)
[2022-09-23] MEDS: VANCOMYCIN 1,250 MG/NS 250 ML 1,250 MG/250 ML BAG 166.67 MG IVPB (15:49)
[2022-09-23 16:09] LABS: Ammonia < 9 umol/L (9-30)
[2022-09-23 16:58] LABS: Glucose Point of Care 201 mg/dl (65-105)
[2022-09-23] MEDS: INSULIN ASPART (*BKC) 100 UNITS/ML SUB-Q (18:15)
[2022-09-23] MEDS: VANCOMYCIN 1,000 MG/NS 250 ML 1,000 MG/250 ML BAG 250 MG IVPB (18:15)
[2022-09-23] MEDS: WARFARIN (*PBKC) 3 MG TABLET PO (18:16)
[2022-09-23] MEDS: traZODone HCL 25 MG TABLET PO (20:59)
[2022-09-23 22:01] LABS: Glucose Point of Care 199 mg/dl (65-105)
[2022-09-24] MEDS: DEXTROSE 5%/0.9% SOD CHL 1,000 ML 70 ML IV CONT (05:28)
[2022-09-24 06:00] VITALS: BP 154/54; PULSE 73; RESP 16; TEMP 36.6; O2SAT 93
[2022-09-24 08:20] LABS: Glucose Point of Care 172 mg/dl (65-105)
[2022-09-24 08:25] VITALS: O2SAT 96
[2022-09-24 08:29] LABS: Basophils Percent Auto 0.2 % (0.2-1.2); Hematocrit 30.6 % (42.0-52.0); Hemoglobin 9.7 g/dL (14.0-18.0); Immature Granulocyte Absolute 0.05 K/mm3 (0.00-0.031); Immature Granulocyte Percent A 0.4 % (0-0.5); Lymphocytes Absolute Auto 1.43 K/mm3 (0.9-3.2); Lymphocytes Percent Auto 12.4 % (18.3-44.2); Mean Corpuscular HGB Conc 31.7 g/dl (32-36); Mean Corpuscular Hemoglobin 31.5 pg (26-34); Mean Corpuscular Volume 99.4 fl (80-100); Monocytes Absolute Auto 0.7 K/mm3 (0.1-0.6); Monocytes Percent Auto 6.4 % (2.6-8.5); Neutrophils Absolute Auto 9.3 K/mm3 (1.3-6.7); Neutrophils Percent Auto 80.6 % (45.5-73.1); Platelet Count Result 183 k/mm3 (150-375); Red Blood Count 3.08 M/mm3 (4.6-6.20); Red Cell Distribution Width 12.6 % (11.5-14.5); White Blood Count 11.5 K/mm3 (4.5-10.0)
[2022-09-24 08:35] LABS: INR 1.3; Prothrombin Time 16.9 Seconds (11.1-14.7)
[2022-09-24 08:41] LABS: Alanine Aminotransferase 30 U/L (6-50); Albumin Level 2.9 g/dL (3.5-5.1); Alkaline Phosphatase 67 U/L (38-126); Anion Gap 6 mmol/L (8-16); Aspartate Amino Transferase 44 U/L (17-59); Blood Urea Nitrogen 35 mg/dL (9-20); Calcium 9.8 mg/dL (8.4-10.2); Carbon Dioxide 27 mmol/L (22-30); Chloride 108 mmol/L (98-107); Estimated CRCL calculation 35 ml/min; Estimated Glomerular Filt Rate 45; Glucose 190 mg/dL (65-110); Sodium 141 mmol/L (137-145)
--- NOTE | 2022-09-24 09:13 | WPDNEURCNPN ---
Assessment and Plan Assessment and plan (1) Confusion: Code(s): R41.0 - Disorientation, unspecified Status: Acute (2) Generalized weakness: Code(s): R53.1 - Weakness Status: Acute (3) B12 deficiency: Code(s): E53.8 - Deficiency of other specified B group vitamins Status: Acute (4) Effusion of left knee joint: Code(s): M25.462 - Effusion, left knee Status: Acute Plan Mr. Mixon is an 82 year old male with a history of multiple medical problems, atrial fibrillation s/p cardiac pacemaker placement presenting due to fall and confusion. Since the procedure, patient has not been at baseline mental status. Per , patient has had several instances where it has taken longer than expected for his cognition to return to baseline after receiving sedation. Work-up significant only for low vitamin B12 which would not result in an acute change. Noted to have left knee effusion after fall and uptrending WBC -- thought maybe change in mental status was due to underlying infection, but blood and synovial fluid cultures have been negative so far. Recent cardiac procedure with acute change in mental status raises concern for possible vascular event such as stroke. He has lower extremity weakness, which seems to be mostly due to deconditioning and pain, but no other focalities noted on exam. However, there have been concerns for dysphagia which may be transient due to intubation. Unfortunately, cannot obtain MRI brain with pacemaker here. If mental status fails to improve, and there is no other obvious cause, would suggest transfer to facility that can accommodate MRI with patient's pacemaker. Discussed with patient's . Consult date: 09/24/22 Reason for consult: Altered mental status HPI: Pablo Mixon is a 82 year old male with a history of aortic stenosis, carotid disease, CAD, DVT, HTN, HLD, MECHELEL, atrial fibrillation, stage 3 CKD presenting due to altered mental status. Patient was brought in on day of admission after he had a fall while doing to the bathroom. He had cardiac pacemaker placed about a week prior to admission and had notable generalized weakness since then. Patient complained of L knee pain but no other significant symptoms. However, he was noted to be confused on exam. Per family, patient hasn't been at baseline mental status since the pacemaker was placed. Patient does have a history of difficulty tolerating anesthesia in the past. Work-up thus far has included CT head which did not show any acute or subacute changes. B12 level was low (212), and is currently being repleted. TSH and Ammonia levels have been normal. During admission he had low grade fever and uptrending WBC. There was concern for possible septic arthritis so he was started on antibiotics and underwent arthrocentesis -- results of which are reportedly more suggestive of trauma/crystal arthropathy. His blood cultures and synovial fluid cultures have come back negative and he has not had any additional fevers. UA is negative as well. Renal function is at baseline currently. There have also been ongoing concerns of dysphagia. Per , patient had dysphagia after intubation for cardiac surgery in 2018, and it took him 2 weeks to return to his baseline mental status afterwards. The dysphagia had resolved at that time. After most recent, procedure, he has been having difficulty swallowing again. Barium swallow evaluation shows concern for aspiration with multiple consistencies. Per , at baseline patient is AOx4. Review of Systems Review of Systems: ROS unobtainable: Yes unobtainable due to mental status PMFSH Past Medical History Medical History Aortic stenosis Status post porcine valve replacement in 2018. Benign prostatic hyperplasia Carotid artery disease Status post right carotid endarterectomy in 2006. Chronic kidney disease, stage 3 unspecified Coronary artery disease Wi
[2022-09-24 09:20] LABS: CRP 31.3 mg/dL (<1.0)
[2022-09-24] MEDS: TAMSULOSIN HCL 0.4 MG CAPSULE PO (10:25)
[2022-09-24] MEDS: COLCHICINE 0.6 MG TABLET PO ×2 (10:25→20:33)
[2022-09-24] MEDS: CYANOCOBALAMIN 1,000 MCG TABLET 1000 MCG PO (10:25)
[2022-09-24] MEDS: amLODIPine BESYLATE 5 MG TABLET PO (10:25)
[2022-09-24] MEDS: cefTRIAXone 2 GM/NS 100 ML 2 GM/100 ML BAG IVPB (10:25)
[2022-09-24] MEDS: FAMOTIDINE 20 MG/2 ML VIAL IV PUSH ×2 (10:25→20:33)
[2022-09-24] MEDS: FUROSEMIDE 20 MG TABLET PO (10:26)
[2022-09-24] MEDS: LATANOPROST 0.005% OP SOLN 2.5 ML BTL 1 DROP EACH EYE (10:26)
[2022-09-24] MEDS: ENOXAPARIN 40 MG/0.4 ML SYRINGE SUB-Q (10:26)
[2022-09-24] MEDS: TIMOLOL MALEATE 0.5% OP SOLN 5 ML BOTTLE 1 DROP LEFT EYE ×2 (10:26→20:33)
[2022-09-24 11:35] LABS: Glucose Point of Care 179 mg/dl (65-105)
--- NOTE | 2022-09-24 12:16 | PM.IMPN ---
Progress Note: A&P Assessment and Plan (1) Confusion: Code(s): R41.0 - Disorientation, unspecified Status: Acute Assessment and Plan: Patient remains confused today. TSH is normal. B12 level was low which could contribute to confusion; B12 was replaced. UA is clear. Chest x-ray is clear. Low-grade fever has recurred but no evidence of infection. Atelectasis causing fevers? BCx NGTD. WBC up again. Pacemaker incision area does not appear to be infected. Head CT shows no acute findings. ABG okay. Ammonia <9. Related to anaesthesia? Occult infection? Does not take chronic EtOH, opiates or benzos at home so doubt w/d. Continue to monitor. Neuro consulted. No MRI since he has PM. Repeat CT brain. Repeat CXR. (2) Effusion of left knee joint: Code(s): M25.462 - Effusion, left knee Status: Acute Assessment and Plan: Patient with left knee pain and found to have a left knee effusion and considerable pain. His white count was elevated and had a low-grade fever. Left knee arthrocentesis: 110mL yellow fluid removed. 2K RBC, 21K WBC with 95% neutrophils and crystals (MSU and CPPD). Gram stain showing no MO but many WBCs. Culture NGTD. [place] related to trauma and/or crystal arthropathy. Consider concurrent septic arthritis but normally WBC>50K. He is allergic to Prednisone and concern for NSAIDs given his CKD. Started colchicine and will follow closely. Ortho Consulted. Abx started. (3) Fall from ground level: Code(s): W18.30XA - Fall on same level, unspecified, initial encounter Status: Acute Assessment and Plan: The patient presented to the emergency department from home for evaluation after a fall. His fall was due to his generalized weakness; he denied prodromal symptoms and syncope. No fractures noted. PT/OT ordered. (4) Generalized weakness: Code(s): R53.1 - Weakness Status: Acute Assessment and Plan: As above (5) Type 2 diabetes mellitus: Code(s): E11.9 - Type 2 diabetes mellitus without complications Status: Acute Assessment and Plan: A1c 7.1 in Mar. The patient's blood glucose was reviewed on 09/24 Glucose mildly elevated. Continue AccuCheks covering with sliding scale. Hypoglycemia protocol available as needed. Continue to monitor (6) Chronic kidney disease, stage 3 unspecified: Code(s): N18.30 - Chronic kidney disease, stage 3 unspecified Status: Acute Assessment and Plan: Baseline creatinine was 1.4 -1.5 for the past 2 years. Creatinine 1.7 on admission but now improved. Suspect patient back at baseline. Will continue to follow renal function. (7) Macrocytic anemia: Code(s): D53.9 - Nutritional anemia, unspecified Status: Acute Assessment and Plan: Patient with mild anemia with hemoglobin in the 11-12 range. Macrocytosis noted. Found to be B12 deficient Consistent with B12 deficiency anemia. Will replace B12. Hgb has drifted down to 9-10 range. Follow (8) Thrombocytopenia: Code(s): D69.6 - Thrombocytopenia, unspecified Status: Acute Assessment and Plan: Patient has hx of mild thrombocytopenia. Platelet count 145K on admission probably related to low B12. Plt count actually back to normal possibly related to low B12. Will continue to monitor. (9) Paroxysmal A-fib: Code(s): I48.0 - Paroxysmal atrial fibrillation Status: Acute Assessment and Plan: EKG showing NSR. He is on Coumadin for AFib. INR 1.2 on admission. Coumadin continued. Plan DVT Prophylaxis - Lovenox Subjective Date/time seen: 09/24/22 12:16 Interval history: 82yo male with CAD, DM, HTN, pAFib and recent PM placement here for confusion. Still confused overnight and this morning. Review of Systems Review of Systems: ROS unobtainable: Yes unobtainable due to mental status Exam Narrative: Tm 101 97.9 154/54 73 16 96% 1L Gen - NA
[2022-09-24 14:00] VITALS: BP 87/50; PULSE 76; RESP 18; TEMP 36.1; O2SAT 99
[2022-09-24 16:37] LABS: Glucose Point of Care 174 mg/dl (65-105)
--- NOTE | 2022-09-24 17:08 | PM.CNOR ---
Assessment and Plan Assessment and plan (1) Effusion of left knee joint: Code(s): M25.462 - Effusion, left knee Status: Acute Assessment and Plan: 82-year-old male with a swollen left knee likely related to gout. Aspiration of the knee showed elevated white count with MSU and CPPD crystals. Culture was negative for any bacterial growth. Do not believe the knee is a source of infection. He has been placed on colchicine and will see how he responds. Will follow while he is in the hospital but can follow up with primary care after discharge. Thank you for the consult. History of Present Illness HPI Consult date: 09/24/22 Consult reason: other (Left knee swelling) Chief complaint: Knee Sprain/Falls/Generalized Weakness Narrative: 82-year-old male admitted after a fall onto his left side. His is at bedside to provide information about his current condition. Per her report, he recently had a pacemaker placed and may be experiencing some side effects from the anesthesia. The knee was recently aspirated with 110 mL of fluid drawn off. Cytology showed elevated white blood cell count with MSU and CPPD crystals. The does report patient has a history of gout but it has never been diagnosed in his knee. Cultures of the knee were negative for any bacterial growth. He still has some warmth and swelling to the knee. Range of motion at the knee is irritable to the patient. Review of Systems Constitutional: Constitutional: Reports as per HPI Cardiovascular: Cardiovascular: Reports as per HPI Respiratory: Respiratory: Reports as per HPI Gastrointestinal: Gastrointestinal: Reports as per HPI Musculoskeletal: Musculoskeletal: Reports no additional musculoskeletal complaints and Reports as per HPI Neurologic: Reports system reviewed and no additional complaints, except as documented and Reports as per HPI Psychiatric: Psychiatric: Reports as per HPI Hematologic/Lymphatic: Hematologic/Lymphatic: Reports as per HPI Allergic/Immunologic: Allergic/Immunologic: Reports as per HPI [facility] Past Medical History Medical History Aortic stenosis Status post porcine valve replacement in 2018. Benign prostatic hyperplasia Carotid artery disease Status post right carotid endarterectomy in 2006. Chronic kidney disease, stage 3 unspecified Coronary artery disease With history of stents and bypass. Current use of terminal clerk anticoagulation Deep venous thrombosis Essential hypertension Glaucoma Hyperlipidemia Nephrolithiasis Obstructive sleep apnea patient reports that he was unable to complete the entire sleep study due to waking up several times to go to the bathroom. He refused further testing, but there is documentation that he most likely has sleep apnea. Osteoarthritis Paroxysmal atrial fibrillation Periodontal disease Stage 3 chronic kidney disease Baseline creatinine runs between 1.4 and 1.5. Thrombocytopenia Type 2 diabetes mellitus Vitamin D deficiency Surgical History Surgical History History of aortic valve replacement with porcine valve (12/2017) History of arthroplasty of right knee (08/31/15) History of coronary artery stent placement (2007) x4. History of four vessel coronary artery bypass graft (12/2017) History of permanent cardiac pacemaker placement History of right-sided carotid endarterectomy (2005) History of tonsillectomy and adenoidectomy History of transurethral resection of prostate Family History Family History Father Carcinoma of colon Mother Family history of coronary artery disease Sibling Family history of malignant neoplasm of breast in first degree relative Social History Social History Social History: Surrogate decision maker: barb Martínez
[2022-09-24] MEDS: traZODone HCL 25 MG TABLET PO (20:33)
[2022-09-24 20:52] LABS: Glucose Point of Care 193 mg/dl (65-105)
[2022-09-24 22:00] VITALS: BP 140/51; PULSE 69; RESP 18; TEMP 36.7; O2SAT 100
[2022-09-25 06:00] VITALS: BP 146/54; PULSE 74; RESP 16; TEMP 36.6; O2SAT 99
[2022-09-25 06:29] LABS: Basophils Percent Auto 0.1 % (0.2-1.2); Eosinophils Percent Auto 0.6 % (0-4.4); Hematocrit 33.3 % (42.0-52.0); Hemoglobin 10.4 g/dL (14.0-18.0); Immature Granulocyte Absolute 0.03 K/mm3 (0.00-0.031); Immature Granulocyte Percent A 0.4 % (0-0.5); Lymphocytes Absolute Auto 1.57 K/mm3 (0.9-3.2); Lymphocytes Percent Auto 22.1 % (18.3-44.2); Mean Corpuscular HGB Conc 31.2 g/dl (32-36); Mean Corpuscular Hemoglobin 31.1 pg (26-34); Mean Corpuscular Volume 99.7 fl (80-100); Mean Platelet Volume 10.9 fl (7.4-10.4); Monocytes Absolute Auto 0.6 K/mm3 (0.1-0.6); Monocytes Percent Auto 8.1 % (2.6-8.5); Neutrophils Absolute Auto 4.9 K/mm3 (1.3-6.7); Neutrophils Percent Auto 68.7 % (45.5-73.1); Platelet Count Result 210 k/mm3 (150-375); Red Blood Count 3.34 M/mm3 (4.6-6.20); Red Cell Distribution Width 12.6 % (11.5-14.5); White Blood Count 7.1 K/mm3 (4.5-10.0)
[2022-09-25 06:30] LABS: INR 1.3; Prothrombin Time 16.9 Seconds (11.1-14.7)
[2022-09-25 06:43] LABS: Anion Gap 9 mmol/L (8-16); Blood Urea Nitrogen 37 mg/dL (9-20); Calcium 10.1 mg/dL (8.4-10.2); Carbon Dioxide 25 mmol/L (22-30); Chloride 109 mmol/L (98-107); Estimated CRCL calculation 35 ml/min; Estimated Glomerular Filt Rate 45; Glucose 236 mg/dL (65-110); Sodium 143 mmol/L (137-145)
[2022-09-25 07:33] LABS: Glucose Point of Care 224 mg/dl (65-105)
[2022-09-25] MEDS: metroNIDAZOLE 500 MG/ISO 100ML 500 MG/100 ML BAG 100 MG IVPB ×3 (07:58→21:11)
[2022-09-25] MEDS: INSULIN ASPART (*BKC) 100 UNITS/ML SUB-Q ×3 (07:58→17:19)
[2022-09-25] MEDS: COLCHICINE 0.6 MG TABLET PO ×2 (07:59→21:11)
[2022-09-25] MEDS: TIMOLOL MALEATE 0.5% OP SOLN 5 ML BOTTLE 1 DROP LEFT EYE ×2 (07:59→21:11)
[2022-09-25] MEDS: CYANOCOBALAMIN 1,000 MCG TABLET 1000 MCG PO (07:59)
[2022-09-25 08:00] VITALS: O2SAT 99
[2022-09-25] MEDS: TAMSULOSIN HCL 0.4 MG CAPSULE PO (08:00)
[2022-09-25] MEDS: FUROSEMIDE 20 MG TABLET PO ×2 (08:00→17:18)
[2022-09-25] MEDS: FAMOTIDINE 20 MG/2 ML VIAL IV PUSH ×2 (08:00→21:11)
[2022-09-25] MEDS: LATANOPROST 0.005% OP SOLN 2.5 ML BTL 1 DROP EACH EYE (08:01)
[2022-09-25] MEDS: amLODIPine BESYLATE 5 MG TABLET PO (08:01)
[2022-09-25] MEDS: ENOXAPARIN 100 MG/ML SYRINGE 85 MG SUB-Q (08:05)
[2022-09-25] MEDS: cefTRIAXone 2 GM/NS 100 ML 2 GM/100 ML BAG IVPB (09:10)
[2022-09-25 10:47] VITALS: BMI 10.0
[2022-09-25 11:22] LABS: Glucose Point of Care 203 mg/dl (65-105)
[2022-09-25 11:43] LABS: Glucose Synovial Fluid <10 mg/dL
[2022-09-25 13:47] VITALS: BP 163/50; PULSE 62; RESP 16; TEMP 36.5; O2SAT 98
--- NOTE | 2022-09-25 13:50 | PCSTNOTE ---
Received orders for a new bedside swallowing evaluation. Patient is on caseload for speech therapy treatment of dysphagia. Patient was unable to be evaluated at this time due to being unable to wake up for more than a few seconds at a time.
--- NOTE | 2022-09-25 13:51 | P.PNIM_ITS ---
Progress Note: A&P Assessment and Plan (1) Confusion: Code(s): R41.0 - Disorientation, unspecified Status: Acute Assessment and Plan: Patient remains confused today. TSH is normal. B12 level was low which could contribute to confusion; B12 was replaced. UA is clear. Chest x-ray is clear. Low-grade fever has recurred but no evidence of infection. Atelectasis causing fevers? BCx NGTD. WBC up again. Pacemaker incision area does not appear to be infected. Head CT shows no acute findings. ABG okay. Ammonia <9. Related to anaesthesia? Occult infection? Does not take chronic EtOH, opiates or benzos at home so doubt w/d. Repeat CT head remains negative. Repeat CXR showing LLL airspace disease but could be atelectasis. He is on abx now. BCx NGTD and synovial fluid culture NGTD (but ortho does not think knee is infected). Neuro wants MRI and patient would need to be transferred but family not interested. Continue to monitor. Add Seroquel at night (2) Effusion of left knee joint: Code(s): M25.462 - Effusion, left knee Status: Acute Assessment and Plan: Patient with left knee pain and found to have a left knee effusion and considerable pain. His white count was elevated and had a low-grade fever. Left knee arthrocentesis: 110mL yellow fluid removed. 2K RBC, 21K WBC with 95% neutrophils and crystals (MSU and CPPD). Gram stain showing no MO but many WBCs. Culture NGTD. [place] related to trauma and/or crystal arthropathy. Consider concurrent septic arthritis but normally WBC>50K; ortho alcaraz snot feel this is septic knee. He is allergic to Prednisone and concern for NSAIDs given his CKD. Started colchicine and will follow clinically (3) Fall from ground level: Code(s): W18.30XA - Fall on same level, unspecified, initial encounter Status: Acute Assessment and Plan: The patient presented to the emergency department from home for evaluation after a fall. His fall was due to his generalized weakness; he denied prodromal symptoms and syncope. No fractures noted. Continue PT/OT. He has beatriz accepted at SNF. (4) Generalized weakness: Code(s): R53.1 - Weakness Status: Acute Assessment and Plan: As above (5) Type 2 diabetes mellitus: Code(s): E11.9 - Type 2 diabetes mellitus without complications Status: Acute Assessment and Plan: A1c 7.1 in Mar. The patient's blood glucose was reviewed on 09/25 Glucose elevated. Continue AccuCheks covering with sliding scale. Hypoglycemia protocol available as needed. Continue to monitor (6) Chronic kidney disease, stage 3 unspecified: Code(s): N18.30 - Chronic kidney disease, stage 3 unspecified Status: Acute Assessment and Plan: Baseline creatinine was 1.4 -1.5 for the past 2 years. Creatinine 1.7 on admission but now improved. Suspect patient back at baseline. Will continue to follow renal function. (7) Macrocytic anemia: Code(s): D53.9 - Nutritional anemia, unspecified Status: Acute Assessment and Plan: Patient with mild anemia with hemoglobin in the 11-12 range. Macrocytosis noted. Found to be B12 deficient Consistent with B12 deficiency anemia. Will replace B12. Hgb has drifted down to 9-10 range and stable. Follow (8) Thrombocytopenia: Code(s): D69.6 - Thrombocytopenia, unspecified Status: Acute Assessment and Plan: Patient has hx of mild thrombocytopenia. Platelet count 145K on admission probably related to low B12. Plt count actually back to normal possibly related to B12 replaceme
[2022-09-25] MEDS: DEXTROSE 5%/0.9% SOD CHL 1,000 ML 70 ML IV CONT (14:15)
--- NOTE | 2022-09-25 15:22 | PCPTNOTE ---
Attempted to see patient for PT this afternoon, however patient unable to stay awake to participate with PT. Patient's in room and reported he's been really sleepy all day and that patient probably is unable to work with therapy. Patient unable to participate with PT at this time.
[2022-09-25 16:39] LABS: Glucose Point of Care 209 mg/dl (65-105)
[2022-09-25] MEDS: ATORVASTATIN 40 MG TABLET PO (17:18)
[2022-09-25] MEDS: WARFARIN (*PBKC) 3 MG TABLET PO (17:18)
[2022-09-25 20:30] VITALS: BP 159/59; PULSE 71; RESP 16; TEMP 36.2; O2SAT 94
[2022-09-25 21:09] LABS: Glucose Point of Care 265 mg/dl (65-105)
[2022-09-25] MEDS: QUEtiapine FUMARATE 12.5 MG TABLET PO (21:11)
[2022-09-26 04:40] VITALS: BP 138/90; PULSE 69; RESP 16; TEMP 36.3; O2SAT 100
[2022-09-26] MEDS: metroNIDAZOLE 500 MG/ISO 100ML 500 MG/100 ML BAG 100 MG IVPB ×3 (05:32→21:45)
[2022-09-26] MEDS: DEXTROSE 5%/0.9% SOD CHL 1,000 ML 70 ML IV CONT ×2 (05:33→21:45)
[2022-09-26 06:16] LABS: INR 1.2; Prothrombin Time 15.8 Seconds (11.1-14.7)
[2022-09-26 06:27] LABS: Anion Gap 7 mmol/L (8-16); Blood Urea Nitrogen 34 mg/dL (9-20); Calcium 9.7 mg/dL (8.4-10.2); Carbon Dioxide 23 mmol/L (22-30); Chloride 114 mmol/L (98-107); Estimated CRCL calculation 38 ml/min; Estimated Glomerular Filt Rate 48; Glucose 271 mg/dL (65-110); Potassium 3.3 mmol/L (3.4-5.0); Sodium 144 mmol/L (137-145)
[2022-09-26 07:18] LABS: Glucose Point of Care 261 mg/dl (65-105)
[2022-09-26] MEDS: INSULIN ASPART (*BKC) 100 UNITS/ML SUB-Q ×3 (08:14→17:57)
[2022-09-26] MEDS: amLODIPine BESYLATE 5 MG TABLET PO (08:16)
[2022-09-26] MEDS: COLCHICINE 0.6 MG TABLET PO ×2 (08:16→19:59)
[2022-09-26] MEDS: FUROSEMIDE 20 MG TABLET PO (08:16)
[2022-09-26] MEDS: ENOXAPARIN 100 MG/ML SYRINGE 85 MG SUB-Q (08:16)
[2022-09-26] MEDS: FAMOTIDINE 20 MG/2 ML VIAL IV PUSH ×2 (08:16→19:59)
[2022-09-26] MEDS: TIMOLOL MALEATE 0.5% OP SOLN 5 ML BOTTLE 1 DROP LEFT EYE ×2 (08:16→19:59)
[2022-09-26] MEDS: TAMSULOSIN HCL 0.4 MG CAPSULE PO (08:16)
[2022-09-26] MEDS: ATORVASTATIN 40 MG TABLET PO (08:16)
[2022-09-26] MEDS: LATANOPROST 0.005% OP SOLN 2.5 ML BTL 1 DROP EACH EYE (08:16)
[2022-09-26] MEDS: cefTRIAXone 2 GM/NS 100 ML 2 GM/100 ML BAG IVPB (08:17)
[2022-09-26] MEDS: CYANOCOBALAMIN 1,000 MCG TABLET 1000 MCG PO (08:17)
--- NOTE | 2022-09-26 10:06 | PM.IMPN ---
Progress Note: A&P Assessment and Plan (1) Confusion: Code(s): R41.0 - Disorientation, unspecified Status: Acute Assessment and Plan: Patient remains confused today. TSH is normal. B12 level was low which could contribute to confusion; B12 was replaced. UA is clear. Chest x-ray is clear. Low-grade fever has recurred but no evidence of infection. Atelectasis causing fevers? BCx NGTD. WBC up again. Pacemaker incision area does not appear to be infected. Head CT shows no acute findings. ABG okay. Ammonia <9. Related to anaesthesia? Occult infection? Does not take chronic EtOH, opiates or benzos at home so doubt w/d. Repeat CT head remains negative. Repeat CXR showing LLL airspace disease but could be atelectasis. He is on abx now. BCx NGTD and synovial fluid culture NGTD (but ortho does not think knee is infected). Neuro wants MRI and patient would need to be transferred but family not interested. Continue to monitor. Add Seroquel at night 09/26: Check LP, then would transfer for MRI if this is negative for etiology (2) Effusion of left knee joint: Code(s): M25.462 - Effusion, left knee Status: Acute Assessment and Plan: Patient with left knee pain and found to have a left knee effusion and considerable pain. His white count was elevated and had a low-grade fever. Left knee arthrocentesis: 110mL yellow fluid removed. 2K RBC, 21K WBC with 95% neutrophils and crystals ([facility] and [facility]). Gram stain showing no MO but many WBCs. Culture NGTD. 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 Consider concurrent septic arthritis but normally WBC>50K; ortho alcaraz snot feel this is septic knee. He is allergic to Prednisone and concern for NSAIDs given his CKD. Started colchicine and will follow clinically (3) Fall from ground level: Code(s): W18.30XA - Fall on same level, unspecified, initial encounter Status: Acute Assessment and Plan: The patient presented to the emergency department from home for evaluation after a fall. His fall was due to his generalized weakness; he denied prodromal symptoms and syncope. No fractures noted. Continue PT/OT. He has beatriz accepted at SNF. (4) Generalized weakness: Code(s): R53.1 - Weakness Status: Acute Assessment and Plan: As above (5) Type 2 diabetes mellitus: Code(s): E11.9 - Type 2 diabetes mellitus without complications Status: Acute Assessment and Plan: A1c 7.1 in Mar. The patient's blood glucose was reviewed on 09/25 Glucose elevated. Continue AccuCheks covering with sliding scale. Hypoglycemia protocol available as needed. Continue to monitor (6) Chronic kidney disease, stage 3 unspecified: Code(s): N18.30 - Chronic kidney disease, stage 3 unspecified Status: Acute Assessment and Plan: Baseline creatinine was 1.4 -1.5 for the past 2 years. Creatinine 1.7 on admission but now improved. Suspect patient back at baseline. Will continue to follow renal function. (7) Macrocytic anemia: Code(s): D53.9 - Nutritional anemia, unspecified Status: Acute Assessment and Plan: Patient with mild anemia with hemoglobin in the 11-12 range. Macrocytosis noted. Found to be B12 deficient Consistent with B12 deficiency anemia. Will replace B12. Hgb has drifted down to 9-10 range and stable. Follow (8) Thrombocytopenia: Code(s): D69.6 - Thrombocytopenia, unspecified Status: Acute Assessment and Plan: Patient has hx of mild thrombocytopenia. Platelet count 145K on admission probably related to low B12. Plt count actually back to normal possibly related to B12 replacement. Will continue to monitor. (9) Paroxysmal A-fib: Code(s): I48.0 - Paroxysmal atrial fibrillation Status: Acute Assessment and Plan: EKG showing NSR. He is on Coumadin for AFib. INR 1.2 on admission. Coumadin continued. Add Lovenox therapeutic dose until I
--- NOTE | 2022-09-26 10:23 | PM.DS ---
DS: Admitting Diagnosis Discharge Date 09/26/22 Admitting Diagnosis ams DS: Discharge Diagnosis Discharge Diagnosis (1) Confusion: Code(s): R41.0 - Disorientation, unspecified Status: Acute Assessment and Plan: Patient remains confused today. TSH is normal. B12 level was low which could contribute to confusion; B12 was replaced. UA is clear. Chest x-ray is clear. Low-grade fever has recurred but no evidence of infection. Atelectasis causing fevers? BCx NGTD. WBC up again. Pacemaker incision area does not appear to be infected. Head CT shows no acute findings. ABG okay. Ammonia <9. Related to anaesthesia? Occult infection? Does not take chronic EtOH, opiates or benzos at home so doubt w/d. Repeat CT head remains negative. Repeat CXR showing LLL airspace disease but could be atelectasis. He is on abx now. BCx NGTD and synovial fluid culture NGTD (but ortho does not think knee is infected). Neuro wants MRI and patient would need to be transferred but family not interested. Continue to monitor. Add Seroquel at night (2) Effusion of left knee joint: Code(s): M25.462 - Effusion, left knee Status: Acute Assessment and Plan: Patient with left knee pain and found to have a left knee effusion and considerable pain. His white count was elevated and had a low-grade fever. Left knee arthrocentesis: 110mL yellow fluid removed. 2K RBC, 21K WBC with 95% neutrophils and crystals ([facility] and [facility]). Gram stain showing no MO but many WBCs. Culture NGTD. 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 Consider concurrent septic arthritis but normally WBC>50K; ortho alcaraz snot feel this is septic knee. He is allergic to Prednisone and concern for NSAIDs given his CKD. Started colchicine and will follow clinically (3) Fall from ground level: Code(s): W18.30XA - Fall on same level, unspecified, initial encounter Status: Acute Assessment and Plan: The patient presented to the emergency department from home for evaluation after a fall. His fall was due to his generalized weakness; he denied prodromal symptoms and syncope. No fractures noted. Continue PT/OT. He has beatriz accepted at SNF. (4) Generalized weakness: Code(s): R53.1 - Weakness Status: Acute Assessment and Plan: As above (5) Type 2 diabetes mellitus: Code(s): E11.9 - Type 2 diabetes mellitus without complications Status: Acute Assessment and Plan: A1c 7.1 in Mar. The patient's blood glucose was reviewed on 09/25 Glucose elevated. Continue AccuCheks covering with sliding scale. Hypoglycemia protocol available as needed. Continue to monitor (6) Chronic kidney disease, stage 3 unspecified: Code(s): N18.30 - Chronic kidney disease, stage 3 unspecified Status: Acute Assessment and Plan: Baseline creatinine was 1.4 -1.5 for the past 2 years. Creatinine 1.7 on admission but now improved. Suspect patient back at baseline. Will continue to follow renal function. (7) Macrocytic anemia: Code(s): D53.9 - Nutritional anemia, unspecified Status: Acute Assessment and Plan: Patient with mild anemia with hemoglobin in the 11-12 range. Macrocytosis noted. Found to be B12 deficient Consistent with B12 deficiency anemia. Will replace B12. Hgb has drifted down to 9-10 range and stable. Follow (8) Thrombocytopenia: Code(s): D69.6 - Thrombocytopenia, unspecified Status: Acute Assessment and Plan: Patient has hx of mild thrombocytopenia. Platelet count 145K on admission probably related to low B12. Plt count actually back to normal possibly related to B12 replacement. Will continue to monitor. (9) Paroxysmal A-fib: Code(s): I48.0 - Paroxysmal atrial fibrillation Status: Acute Assessment and Plan: EKG showing NSR. He is on Coumadin for AFib. INR 1.2 on admission. Coumadin continued. Add Lovenox therapeutic dose unti
--- NOTE | 2022-09-26 10:33 | PCSTNOTE ---
Attempted bedside swallowing reevaluation, patient not alert enough to participate today.
--- NOTE | 2022-09-26 11:40 | PCOTNOTE ---
Attempted to see Patient at this time. Upon arrival, Patients verbalized, he has been out of it since I got here, I tried to wake him but unable . Therapist attempted to arouse him, difficulty, does not follow commands or keep eyes open. Patient unable to participate in Patient's condition.
[2022-09-26 11:47] LABS: Glucose Point of Care 244 mg/dl (65-105)
[2022-09-26 13:50] VITALS: BP 174/56; PULSE 70; RESP 20; TEMP 36.4; O2SAT 99
--- NOTE | 2022-09-26 14:06 | PCOTNOTE ---
Attempted again this P.M. Patient sleeping when entering the room. Patient was able to be aroused but stating, NO repeatedly. Per RN, Patient needs to have a test done but is waiting on orders.
[2022-09-26 14:49] LABS: Hematocrit 33.7 % (42.0-52.0); Hemoglobin 10.8 g/dL (14.0-18.0); Mean Corpuscular Hemoglobin 32.4 pg (26-34); Mean Corpuscular Volume 101.2 fl (80-100); Mean Platelet Volume 11.3 fl (7.4-10.4); Platelet Count Result 272 k/mm3 (150-375); Red Blood Count 3.33 M/mm3 (4.6-6.20); Red Cell Distribution Width 13.1 % (11.5-14.5); White Blood Count 5.7 K/mm3 (4.5-10.0)
--- NOTE | 2022-09-26 16:25 | PC.NURSE ---
Patient to xray for lumbar puncture via bed.
[2022-09-26 17:24] LABS: Glucose CSF 132 mg/dL (40-70); Total Protein CSF 77 mg/dL (12-60)
--- NOTE | 2022-09-26 17:24 | PC.NURSE ---
Patient back from lumbar puncture. Patient must stay flat in bed for 2 hours post procedure. Patient sleeping comfortably at this time.
[2022-09-26 17:52] LABS: Glucose Point of Care 221 mg/dl (65-105)
[2022-09-26] MEDS: VANCOMYCIN 1,250 MG/NS 250 ML 1,250 MG/250 ML BAG 166.67 MG IVPB (17:57)
[2022-09-26 18:00] LABS: Appearance CSF Clear (Clear); CSF source CSF; Color CSF Colorless (Colorless); Lymphocytes CSF 50 % (40-80); Monocytes CSF 50 % (15-45); Neutrophils CSF 0 % (0-6); Nucleated Cell CSF 1 /uL (0-5); Red Blood Cell CSF 1 (0-2)
[2022-09-26 19:32] LABS: Glucose Point of Care 181 mg/dl (65-105)
[2022-09-26 20:00] VITALS: O2SAT 98
[2022-09-26 21:31] VITALS: BP 175/70; PULSE 75; RESP 14; TEMP 36.7; O2SAT 98
[2022-09-27] VITALS (11 sets, daily range): BP systolic 114–197; BP diastolic 54–91; PULSE 63–85; RESP 14–18; TEMP 36.1–37.2; O2SAT 97–100
[2022-09-27] MEDS: SODIUM CHLOR 3% 15 ML NEB (RESPIRATORY THERAPY) 6 ML INHALATION (05:10)
[2022-09-27] MEDS: metroNIDAZOLE 500 MG/ISO 100ML 500 MG/100 ML BAG 100 MG IVPB ×3 (05:31→20:47)
[2022-09-27 07:39] LABS: Glucose Point of Care 243 mg/dl (65-105)
[2022-09-27] MEDS: INSULIN ASPART (*BKC) 100 UNITS/ML SUB-Q ×3 (08:20→17:01)
[2022-09-27] MEDS: cefTRIAXone 2 GM/NS 100 ML 2 GM/100 ML BAG IVPB (08:22)
[2022-09-27] MEDS: ENOXAPARIN 100 MG/ML SYRINGE 85 MG SUB-Q (08:29)
[2022-09-27] MEDS: ATORVASTATIN 40 MG TABLET PO ×2 (08:31→17:00)
[2022-09-27] MEDS: TAMSULOSIN HCL 0.4 MG CAPSULE PO (08:31)
[2022-09-27] MEDS: FAMOTIDINE 20 MG/2 ML VIAL IV PUSH ×2 (08:31→20:40)
[2022-09-27] MEDS: CYANOCOBALAMIN 1,000 MCG TABLET 1000 MCG PO (08:31)
[2022-09-27] MEDS: FUROSEMIDE 20 MG TABLET PO ×2 (08:31→17:00)
[2022-09-27] MEDS: COLCHICINE 0.6 MG TABLET PO ×2 (08:32→20:42)
[2022-09-27] MEDS: LATANOPROST 0.005% OP SOLN 2.5 ML BTL 1 DROP EACH EYE (08:32)
[2022-09-27] MEDS: TIMOLOL MALEATE 0.5% OP SOLN 5 ML BOTTLE 1 DROP LEFT EYE ×2 (08:33→20:41)
--- NOTE | 2022-09-27 10:03 | WPDNEUROPN ---
Progress Note: A&P Assessment and Plan (1) Confusion: Code(s): R41.0 - Disorientation, unspecified Status: Acute (2) Generalized weakness: Code(s): R53.1 - Weakness Status: Acute (3) Paroxysmal A-fib: Code(s): I48.0 - Paroxysmal atrial fibrillation Status: Acute (4) B12 deficiency: Code(s): E53.8 - Deficiency of other specified B group vitamins Status: Acute (5) Current use of assisted anticoagulation: Code(s): Z79.01 - custodial (current) use of anticoagulants Status: Acute Plan Mr. Mixon is an 82 year old male with a history of multiple medical problems, atrial fibrillation s/p cardiac pacemaker placement presenting due to fall and confusion. Since the procedure, patient has not been at baseline mental status. Per , patient has had several instances where it has taken longer than expected for his cognition to return to baseline after receiving sedation. Work-up significant only for low vitamin B12 which would not result in an acute change. Noted to have left knee effusion after fall and uptrending WBC -- thought maybe change in mental status was due to underlying infection, but blood and synovial fluid cultures have been negative so far. CSF studies have been negative so far as well. Recent cardiac procedure with acute change in mental status raises concern for possible vascular event such as stroke. He has lower extremity weakness, which seems to be mostly due to deconditioning and pain, but no other facilities noted on exam. However, there have been concerns for dysphagia which may be transient due to intubation. Unfortunately, cannot obtain MRI brain with pacemaker here. Mental status has not improved since admission, and there is no other obvious cause, recommend transfer to facility that can accommodate MRI with patient's pacemaker. Discussed with patient's . Subjective Date/time seen: 09/27/22 10:03 Interval history: Pablo Mixon is a 82 year old male with a history of aortic stenosis, carotid disease, CAD, DVT, HTN, HLD, MECHELLE, atrial fibrillation, stage 3 CKD presenting due to altered mental status. Patient was brought in on day of admission after he had a fall while doing to the bathroom. He had cardiac pacemaker placed about a week prior to admission and had notable generalized weakness since then. Patient complained of L knee pain but no other significant symptoms. However, he was noted to be confused on exam. Per family, patient hasn't been at baseline mental status since the pacemaker was placed. Patient does have a history of difficulty tolerating anesthesia in the past. Work-up thus far has included CT head which did not show any acute or subacute changes. B12 level was low (212), and is currently being repleted. TSH and Ammonia levels have been normal. During admission he had low grade fever and uptrending WBC. There was concern for possible septic arthritis so he was started on antibiotics and underwent arthrocentesis -- results of which are reportedly more suggestive of trauma/crystal arthropathy. His blood cultures and synovial fluid cultures have come back negative and he has not had any additional fevers. UA is negative as well. Renal function is at baseline currently. There have also been ongoing concerns of dysphagia. Per , patient had dysphagia after intubation for cardiac surgery in 2018, and it took him 2 weeks to return to his baseline mental status afterwards. The dysphagia had resolved at that time. After most recent, procedure, he has been having difficulty swallowing again. Barium swallow evaluation shows concern for aspiration with multiple consistencies. Per , at baseline patient is AOx4. Since last evaluation, TSH and UA have been normal. Repeat CT head is unrevealing. LP was done which showed normal cell count and negative CSF culture. Of note, INR was 1.2 on admission (patient takes warfarin for atrial fibrillation) Review of Systems
--- NOTE | 2022-09-27 11:15 | PCOTNOTE ---
Patient unavailable at this time. Neurology in seeing Patient and having in depth conversation with his at this time.
[2022-09-27 11:29] LABS: Glucose Point of Care 225 mg/dl (65-105)
[2022-09-27] MEDS: amLODIPine BESYLATE 5 MG TABLET PO (11:50)
--- NOTE | 2022-09-27 13:10 | PCSTNOTE ---
Unable to do bedside swallowing evaluation or treatment on patient today, due to mental status. Patient not following directions. Unable to participate.
[2022-09-27 13:37] LABS: INR 1.3; Prothrombin Time 16.8 Seconds (11.1-14.7)
--- NOTE | 2022-09-27 14:10 | PCOTNOTE ---
Attempted to see Patient for OT treatment session. Therapist attempted to increase Patient arousal by moving his UE. Patient resisting movement. Therapist also attempted to perform bed mobility for sitting edge of the bed. Patient became agitated and resisting movements , verbalizing, NO . Patient unable to participate at this time.
--- NOTE | 2022-09-27 15:51 | PM.IMPN ---
Progress Note: A&P Assessment and Plan (1) Confusion: Code(s): R41.0 - Disorientation, unspecified Status: Acute Assessment and Plan: Patient remains confused today. TSH is normal. B12 level was low which could contribute to confusion; B12 was replaced. UA is clear. Chest x-ray is clear. Low-grade fever has recurred but no evidence of infection. Atelectasis causing fevers? BCx NGTD. WBC up again. Pacemaker incision area does not appear to be infected. Head CT shows no acute findings. ABG okay. Ammonia <9. Related to anaesthesia? Occult infection? Does not take chronic EtOH, opiates or benzos at home so doubt w/d. Repeat CT head remains negative. Repeat CXR showing LLL airspace disease but could be atelectasis. He is on abx now. BCx NGTD and synovial fluid culture NGTD (but ortho does not think knee is infected). Neuro wants MRI and patient would need to be transferred but family not interested. Continue to monitor. Add Seroquel at night 09/26: Check LP, then would transfer for MRI if this is negative for etiology 09/27: LP cytology essentially benign, transfer pending for MRI due to presence of PPM (2) Effusion of left knee joint: Code(s): M25.462 - Effusion, left knee Status: Acute Assessment and Plan: Patient with left knee pain and found to have a left knee effusion and considerable pain. His white count was elevated and had a low-grade fever. Left knee arthrocentesis: 110mL yellow fluid removed. 2K RBC, 21K WBC with 95% neutrophils and crystals ([facility] and [facility]). Gram stain showing no MO but many WBCs. Culture NGTD. 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 Consider concurrent septic arthritis but normally WBC>50K; ortho alcaraz snot feel this is septic knee. He is allergic to Prednisone and concern for NSAIDs given his CKD. Started colchicine and will follow clinically (3) Fall from ground level: Code(s): W18.30XA - Fall on same level, unspecified, initial encounter Status: Acute Assessment and Plan: The patient presented to the emergency department from home for evaluation after a fall. His fall was due to his generalized weakness; he denied prodromal symptoms and syncope. No fractures noted. Continue PT/OT. He has beatriz accepted at SNF. (4) Generalized weakness: Code(s): R53.1 - Weakness Status: Acute Assessment and Plan: As above (5) Type 2 diabetes mellitus: Code(s): E11.9 - Type 2 diabetes mellitus without complications Status: Acute Assessment and Plan: A1c 7.1 in Mar. The patient's blood glucose was reviewed on 09/27 Glucose elevated. Continue AccuCheks covering with sliding scale. Hypoglycemia protocol available as needed. Continue to monitor (6) Chronic kidney disease, stage 3 unspecified: Code(s): N18.30 - Chronic kidney disease, stage 3 unspecified Status: Acute Assessment and Plan: Baseline creatinine was 1.4 -1.5 for the past 2 years. Creatinine 1.7 on admission but now improved. Suspect patient back at baseline. Will continue to follow renal function. (7) Macrocytic anemia: Code(s): D53.9 - Nutritional anemia, unspecified Status: Acute Assessment and Plan: Patient with mild anemia with hemoglobin in the 11-12 range. Macrocytosis noted. Found to be B12 deficient Consistent with B12 deficiency anemia. Will replace B12. Hgb has drifted down to 9-10 range and stable. Follow (8) Thrombocytopenia: Code(s): D69.6 - Thrombocytopenia, unspecified Status: Acute Assessment and Plan: Patient has hx of mild thrombocytopenia. Platelet count 145K on admission probably related to low B12. Plt count actually back to normal possibly related to B12 replacement. Will continue to monitor. (9) Paroxysmal A-fib: Code(s): I48.0 - Paroxysmal atrial fibrillation Status: Acute Assessment and Plan: EKG showing NSR. He is on Coumadin f
[2022-09-27 16:24] LABS: Glucose Point of Care 265 mg/dl (65-105)
[2022-09-27] MEDS: WARFARIN (*PBKC) 3 MG TABLET PO (17:00)
[2022-09-27] MEDS: VANCOMYCIN 1,250 MG/NS 250 ML 1,250 MG/250 ML BAG 166.67 MG IVPB (17:42)
[2022-09-27 18:08] LABS: Basophils Percent Auto 0.2 % (0.2-1.2); Eosinophils Percent Auto 0.8 % (0-4.4); Hematocrit 32.4 % (42.0-52.0); Immature Granulocyte Absolute 0.01 K/mm3 (0.00-0.031); Immature Granulocyte Percent A 0.2 % (0-0.5); Lymphocytes Percent Auto 22.8 % (18.3-44.2); Mean Corpuscular HGB Conc 30.9 g/dl (32-36); Mean Corpuscular Hemoglobin 30.8 pg (26-34); Mean Corpuscular Volume 99.7 fl (80-100); Mean Platelet Volume 10.2 fl (7.4-10.4); Monocytes Absolute Auto 0.4 K/mm3 (0.1-0.6); Monocytes Percent Auto 8.7 % (2.6-8.5); Neutrophils Absolute Auto 3.2 K/mm3 (1.3-6.7); Neutrophils Percent Auto 67.3 % (45.5-73.1); Platelet Count Result 238 k/mm3 (150-375); Red Blood Count 3.25 M/mm3 (4.6-6.20); Red Cell Distribution Width 13.1 % (11.5-14.5); White Blood Count 4.8 K/mm3 (4.5-10.0)
[2022-09-27 18:22] LABS: Alanine Aminotransferase 58 U/L (6-50); Albumin Level 2.7 g/dL (3.5-5.1); Alkaline Phosphatase 82 U/L (38-126); Anion Gap 8 mmol/L (8-16); Aspartate Amino Transferase 87 U/L (17-59); Bilirubin,Total 0.6 mg/dL (0.2-1.3); Blood Urea Nitrogen 25 mg/dL (9-20); Calcium 9.4 mg/dL (8.4-10.2); Carbon Dioxide 24 mmol/L (22-30); Chloride 117 mmol/L (98-107); Estimated CRCL calculation 44 ml/min; Estimated Glomerular Filt Rate 58; Glucose 293 mg/dL (65-110); Potassium 3.3 mmol/L (3.4-5.0); Sodium 149 mmol/L (137-145)
[2022-09-27] MEDS: QUEtiapine FUMARATE 12.5 MG TABLET PO (20:41)
[2022-09-27 21:11] LABS: Glucose Point of Care 213 mg/dl (65-105)
[2022-09-28] MEDS: SODIUM CHLOR 3% 15 ML NEB (RESPIRATORY THERAPY) 6 ML INHALATION (05:26)
[2022-09-28] MEDS: metroNIDAZOLE 500 MG/ISO 100ML 500 MG/100 ML BAG 100 MG IVPB ×3 (05:34→20:14)
--- NOTE | 2022-09-28 05:54 | PCRCNOTE ---
RT was unable to obtain a sputum sample from the patient
[2022-09-28 06:57] VITALS: BP 161/77; PULSE 77; RESP 16; TEMP 36.3; O2SAT 100
[2022-09-28 07:23] LABS: Total Protein Synovial Fluid 3.4
[2022-09-28 07:38] LABS: Glucose Point of Care 238 mg/dl (65-105)
[2022-09-28] MEDS: INSULIN ASPART (*BKC) 100 UNITS/ML SUB-Q ×3 (08:34→17:38)
[2022-09-28] MEDS: cefTRIAXone 2 GM/NS 100 ML 2 GM/100 ML BAG IVPB (08:35)
[2022-09-28] MEDS: ATORVASTATIN 40 MG TABLET PO ×2 (08:35→17:39)
[2022-09-28] MEDS: FUROSEMIDE 20 MG TABLET PO ×2 (08:35→17:39)
[2022-09-28] MEDS: amLODIPine BESYLATE 5 MG TABLET PO (08:36)
[2022-09-28] MEDS: LATANOPROST 0.005% OP SOLN 2.5 ML BTL 1 DROP EACH EYE (08:36)
[2022-09-28] MEDS: COLCHICINE 0.6 MG TABLET PO ×2 (08:36→20:10)
[2022-09-28] MEDS: TAMSULOSIN HCL 0.4 MG CAPSULE PO (08:36)
[2022-09-28] MEDS: TIMOLOL MALEATE 0.5% OP SOLN 5 ML BOTTLE 1 DROP LEFT EYE ×2 (08:36→20:09)
[2022-09-28] MEDS: ENOXAPARIN 100 MG/ML SYRINGE 85 MG SUB-Q (08:37)
[2022-09-28] MEDS: FAMOTIDINE 20 MG/2 ML VIAL IV PUSH ×2 (08:37→20:10)
[2022-09-28] MEDS: CYANOCOBALAMIN 1,000 MCG TABLET 1000 MCG PO (08:37)
[2022-09-28 10:01] LABS: Basophils Percent Auto 0.2 % (0.2-1.2); Eosinophils Absolute Auto 0.1 K/mm3 (0-0.3); Eosinophils Percent Auto 1.7 % (0-4.4); Hematocrit 34.9 % (42.0-52.0); Hemoglobin 10.7 g/dL (14.0-18.0); Immature Granulocyte Absolute 0.02 K/mm3 (0.00-0.031); Immature Granulocyte Percent A 0.3 % (0-0.5); Lymphocytes Absolute Auto 1.08 K/mm3 (0.9-3.2); Lymphocytes Percent Auto 18.4 % (18.3-44.2); Mean Corpuscular HGB Conc 30.7 g/dl (32-36); Mean Corpuscular Hemoglobin 30.9 pg (26-34); Mean Corpuscular Volume 100.9 fl (80-100); Mean Platelet Volume 10.3 fl (7.4-10.4); Monocytes Absolute Auto 0.5 K/mm3 (0.1-0.6); Monocytes Percent Auto 7.8 % (2.6-8.5); Neutrophils Absolute Auto 4.2 K/mm3 (1.3-6.7); Neutrophils Percent Auto 71.6 % (45.5-73.1); Platelet Count Result 223 k/mm3 (150-375); Red Blood Count 3.46 M/mm3 (4.6-6.20); Red Cell Distribution Width 13.2 % (11.5-14.5); White Blood Count 5.9 K/mm3 (4.5-10.0)
[2022-09-28 10:03] LABS: Alanine Aminotransferase 82 U/L (6-50); Albumin Level 2.9 g/dL (3.5-5.1); Alkaline Phosphatase 99 U/L (38-126); Anion Gap 5 mmol/L (8-16); Aspartate Amino Transferase 140 U/L (17-59); Bilirubin,Total 0.7 mg/dL (0.2-1.3); Blood Urea Nitrogen 20 mg/dL (9-20); Calcium 9.6 mg/dL (8.4-10.2); Carbon Dioxide 26 mmol/L (22-30); Chloride 116 mmol/L (98-107); Estimated CRCL calculation 47 ml/min; Estimated Glomerular Filt Rate > 60; Glucose 243 mg/dL (65-110); Potassium 3.4 mmol/L (3.4-5.0); Sodium 147 mmol/L (137-145)
[2022-09-28] MEDS: CYANOCOBALAMIN INJ 1,000 MCG/ML VIAL 1000 MCG IM (10:53)
[2022-09-28 11:55] LABS: Glucose Point of Care 209 mg/dl (65-105)
[2022-09-28] MEDS: DEXTROSE 5%/0.9% SOD CHL 1,000 ML 70 ML IV CONT (13:21)
--- NOTE | 2022-09-28 13:47 | PCSTNOTE ---
Buffy Lloyd, DEOILING MACHINE OPERATOR completed Bedside Swallow evaluation in collaboration with REJI Stanley. Caro completed documentation and supervising DEOILING MACHINE OPERATOR, Buffy Lloyd in agreement with documentation.
[2022-09-28 13:52] VITALS: BP 168/80; PULSE 69; RESP 20; TEMP 36.7; O2SAT 100
--- NOTE | 2022-09-28 14:00 | PCSTNOTE ---
Please refer to the Bedside Swallow Evaluation in the EMR. Please note, silent aspiration cannot be ruled out at bedside.
--- NOTE | 2022-09-28 15:08 | PM.IMPN ---
Progress Note: A&P Assessment and Plan (1) Confusion: Code(s): R41.0 - Disorientation, unspecified Status: Acute Assessment and Plan: Patient remains confused today. TSH is normal. B12 level was low which could contribute to confusion; B12 was replaced. UA is clear. Chest x-ray is clear. Low-grade fever has recurred but no evidence of infection. Atelectasis causing fevers? BCx NGTD. WBC up again. Pacemaker incision area does not appear to be infected. Head CT shows no acute findings. ABG okay. Ammonia <9. Related to anaesthesia? Occult infection? Does not take chronic EtOH, opiates or benzos at home so doubt w/d. Repeat CT head remains negative. Repeat CXR showing LLL airspace disease but could be atelectasis. He is on abx now. BCx NGTD and synovial fluid culture NGTD (but ortho does not think knee is infected). Neuro wants MRI and patient would need to be transferred but family not interested. Continue to monitor. Add Seroquel at night 09/26: Check LP, then would transfer for MRI if this is negative for etiology 09/27: LP cytology essentially benign, transfer pending for MRI due to presence of PPM 09/28: transfer pending at [facility], no change in condition (2) Effusion of left knee joint: Code(s): M25.462 - Effusion, left knee Status: Acute Assessment and Plan: Patient with left knee pain and found to have a left knee effusion and considerable pain. His white count was elevated and had a low-grade fever. Left knee arthrocentesis: 110mL yellow fluid removed. 2K RBC, 21K WBC with 95% neutrophils and crystals ([facility] and [facility]). Gram stain showing no MO but many WBCs. Culture NGTD. 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 Consider concurrent septic arthritis but normally WBC>50K; ortho alcaraz snot feel this is septic knee. He is allergic to Prednisone and concern for NSAIDs given his CKD. Started colchicine and will follow clinically (3) Fall from ground level: Code(s): W18.30XA - Fall on same level, unspecified, initial encounter Status: Acute Assessment and Plan: The patient presented to the emergency department from home for evaluation after a fall. His fall was due to his generalized weakness; he denied prodromal symptoms and syncope. No fractures noted. Continue PT/OT. He has beatriz accepted at SNF. (4) Generalized weakness: Code(s): R53.1 - Weakness Status: Acute Assessment and Plan: As above (5) Type 2 diabetes mellitus: Code(s): E11.9 - Type 2 diabetes mellitus without complications Status: Acute Assessment and Plan: A1c 7.1 in Mar. The patient's blood glucose was reviewed on 09/28 Glucose elevated. Continue AccuCheks covering with sliding scale. Hypoglycemia protocol available as needed. Continue to monitor (6) Chronic kidney disease, stage 3 unspecified: Code(s): N18.30 - Chronic kidney disease, stage 3 unspecified Status: Acute Assessment and Plan: Baseline creatinine was 1.4 -1.5 for the past 2 years. Creatinine 1.7 on admission but now improved. Suspect patient back at baseline. Will continue to follow renal function. (7) Macrocytic anemia: Code(s): D53.9 - Nutritional anemia, unspecified Status: Acute Assessment and Plan: Patient with mild anemia with hemoglobin in the 11-12 range. Macrocytosis noted. Found to be B12 deficient Consistent with B12 deficiency anemia. Will replace B12. Hgb has drifted down to 9-10 range and stable. Follow (8) Thrombocytopenia: Code(s): D69.6 - Thrombocytopenia, unspecified Status: Acute Assessment and Plan: Patient has hx of mild thrombocytopenia. Platelet count 145K on admission probably related to low B12. Plt count actually back to normal possibly related to B12 replacement. Will continue to monitor. (9) Paroxysmal A-fib: Code(s): I48.0 - Paroxysmal atrial fibrillation Status: Acute
[2022-09-28 16:36] LABS: Glucose Point of Care 255 mg/dl (65-105)
[2022-09-28] MEDS: WARFARIN (*PBKC) 3 MG TABLET PO (17:39)
[2022-09-28] MEDS: VANCOMYCIN 1,250 MG/NS 250 ML 1,250 MG/250 ML BAG 166.67 MG IVPB (17:40)
[2022-09-28 17:50] LABS: Glucose Point of Care 265 mg/dl (65-105)
[2022-09-28 20:00] VITALS: BP 168/80; PULSE 69; RESP 20; TEMP 36.7; O2SAT 100
[2022-09-28] MEDS: QUEtiapine FUMARATE 12.5 MG TABLET PO (20:10)
[2022-09-28 21:03] VITALS: BP 172/67; PULSE 66; RESP 16; TEMP 36.9; O2SAT 98
[2022-09-28 21:03] LABS: Glucose Point of Care 202 mg/dl (65-105)
[2022-09-29 03:44] LABS: Herpes Simplex Type 1 DNA PCR Not Detected (Not Detected); Herpes Simplex Type 2 DNA PCR Not Detected (Not Detected)
[2022-09-29 09:04] LABS: Epstein Barr Virus DNA PCR Not Detected (Not Detected); Source Epstein Barr Virus CSF
[2022-10-01 10:54] LABS: CMV DNA Quant PCR IU/mL Not Detected; Cytomegalovirus DNA Quant PCR Not Detected log IU/mL; Cytomegalovirus DNA Source Serum
[2022-10-04 13:12] LABS: Varicella IgM Antibody <=0.90 (<=0.90)
--- NOTE | 2022-11-07 08:22 | PM.TDS ---
Transfer Discharge Sum: Prov Provider Date of admission: 09/24/22 09:41 Primary care physician: Pavel Black MD Admitting clinician: Ronni Thompson MD Consults: 09/20/22 12:42 Care Coordination Consult Routine Comment: Reason for Consult:: Acute Rehab Consult 09/23/22 12:33 Consult to Physician Routine Comment: Spoke to 09.23.22 @ 1255 --/us Consulting Provider: Spenser Helton scallop shucker/MD group to consult: ortho Reason for consultation: knee pain Has provider been notified: Yes 09/23/22 17:08 Consult to Physician Routine Comment: Spoke w/ [id number] 09/24 (, [place]) Consulting Provider: Joanne Ramires scallop shucker/ group to consult: neuro Reason for consultation: altered mental status Has provider been notified: Yes DS: Admitting Diagnosis Discharge Date 09/28/22 Admitting Diagnosis Confusion DS: Discharge Diagnosis Discharge Diagnosis (1) Confusion: Code(s): R41.0 - Disorientation, unspecified Status: Acute Assessment and Plan: Patient remains confused today. TSH is normal. B12 level was low which could contribute to confusion; B12 was replaced. UA is clear. Chest x-ray is clear. Low-grade fever has recurred but no evidence of infection. Atelectasis causing fevers? BCx NGTD. WBC up again. Pacemaker incision area does not appear to be infected. Head CT shows no acute findings. ABG okay. Ammonia <9. Related to anaesthesia? Occult infection? Does not take chronic EtOH, opiates or benzos at home so doubt w/d. Repeat CT head remains negative. Repeat CXR showing LLL airspace disease but could be atelectasis. He is on abx now. BCx NGTD and synovial fluid culture NGTD (but ortho does not think knee is infected). Neuro wants MRI and patient would need to be transferred but family not interested. Continue to monitor. Add Seroquel at night 09/26: Check LP, then would transfer for MRI if this is negative for etiology 09/27: LP cytology essentially benign, transfer pending for MRI due to presence of PPM 09/28: transfer pending at [facility] and [facility], no change in condition (2) Effusion of left knee joint: Code(s): M25.462 - Effusion, left knee Status: Acute Assessment and Plan: Patient with left knee pain and found to have a left knee effusion and considerable pain. His white count was elevated and had a low-grade fever. Left knee arthrocentesis: 110mL yellow fluid removed. 2K RBC, 21K WBC with 95% neutrophils and crystals ([facility] and [facility]). Gram stain showing no MO but many WBCs. Culture NGTD. 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 Consider concurrent septic arthritis but normally WBC>50K; ortho alcaraz snot feel this is septic knee. He is allergic to Prednisone and concern for NSAIDs given his CKD. Started colchicine and will follow clinically (3) Fall from ground level: Code(s): W18.30XA - Fall on same level, unspecified, initial encounter Status: Acute Assessment and Plan: The patient presented to the emergency department from home for evaluation after a fall. His fall was due to his generalized weakness; he denied prodromal symptoms and syncope. No fractures noted. Continue PT/OT. He has beatriz accepted at SNF. (4) Generalized weakness: Code(s): R53.1 - Weakness Status: Acute Assessment and Plan: As above (5) Type 2 diabetes mellitus: Code(s): E11.9 - Type 2 diabetes mellitus without complications Status: Acute Assessment and Plan: A1c 7.1 in Mar. The patient's blood glucose was reviewed on 09/28 Glucose elevated. Continue AccuCheks covering with sliding scale. Hypoglycemia protocol available as needed. Continue to monitor (6) Chronic kidney disease, stage 3 unspecified: Code(s): N18.30 - Chronic kidney disease, stage 3 unspecified Status: Acute Assessment and Plan: Baseline creatinine was 1.4 -1.5 for the past 2 years. Creatinine 1.7 on admission but now i
== END 2022-09-28 21:11 | disposition short-term general hospital (02) | DRG 948 ==
LOC: ANHED 10:27 → ANH3MEDSUR 15:13
PROVIDERS: Internal Medicine; Physician Assistant; Admitting Provider Family Medicine; Emergency Provider Emergency Medicine; PCP Family Medicine; Visit Provider Student in an Organized Health Care Education/Training Program
DX: R41.0 Disorientation, unspecified (principal); I12.9 Hypertensive chronic kidney disease with stage 1 through stage 4 chronic kidney disease, or unspecified chronic kidney disease; E11.22 Type 2 diabetes mellitus with diabetic chronic kidney disease; I48.0 Paroxysmal atrial fibrillation; N18.30 Chronic kidney disease, stage 3 unspecified; D53.9 Nutritional anemia, unspecified; D69.6 Thrombocytopenia, unspecified; E53.8 Deficiency of other specified B group vitamins; E55.9 Vitamin D deficiency, unspecified; E78.5 Hyperlipidemia, unspecified; M25.462 Effusion, left knee; R53.1 Weakness; R13.10 Dysphagia, unspecified; R29.6 Repeated falls; N40.0 Benign prostatic hyperplasia without lower urinary tract symptoms; G47.33 Obstructive sleep apnea (adult) (pediatric); Z95.0 Presence of cardiac pacemaker; Z95.3 Presence of xenogenic heart valve; Z86.718 Personal history of other venous thrombosis and embolism; Z95.5 Presence of coronary angioplasty implant and graft; Z95.1 Presence of aortocoronary bypass graft; Z79.01 Long term (current) use of anticoagulants; Z79.82 Long term (current) use of aspirin
CPT/HCPCS: 20610; 36415; 36600; 62328; 70450; 71045; 72125; 72170; 73521; 73552; 73562; 73610; 77002; 80048; 80053; 80202; 81001; 82140; 82247; 82550; 82607; 82728; 82746; 82805; 82945; 82948; 83036; 83540; 83550; 84157; 84443; 85025; 85027; 85055; 85610; 86140; 86787; 87015; 87040; 87070; 87075; 87102; 87116; 87205; 87206; 87497; 87529; 87798; 88108; 89051; 89060; 92526; 92610; 92611; 93005; 93970; 94640; 96361; 96365; 96372; 96375; 96376; 97110; 97161; 97166; 97530; 97535; 99285; A9270; G0378; J0696; J1650; J1815; J1836; J3370; J3420; J7030; J7042